=== PATIENT | female | born 1930 | race Caucasian/White ===

== ENCOUNTER → 2016-07-29 | Outpatient (CLI) | payer MEDICARE ==
[~2016-07-29] VITALS: Ht 157.5 cm; Wt 86.5 kg
[~2016-07-29] MED LIST: CHLORHEXIDINE GLUCONATE 2 % 1 PACK (2 CLOTHS) TOPICAL PRN; COUM7.5T PO; DULO20 PO; ENOX60P SQ; FURO1TAB62 PO; INSULIN HUMAN REGULAR 1,000 UNITS/10 ML VIAL SQ PRN; LACTATED RINGER'S 1000 ML IV PRN; LEVA500T20 PO; LEVO50TA53 PO; LISI-515 PO; LORA-373 PO; METO50TA PO; METOPROLOL TARTRATE 25 MG TAB PO PRN; NIFE30TA61 PO; NORC5TAB PO; OXYB5TAB10 PO; POTA1TAB4 PO; POVIDONE IODINE 5% (ANTISEPSIS KIT) 4 APPLICATIONS EACH NARE PRN; PROPOFOL 200 MG/20 ML AMP IV ONE; SODIUM CHLORID 0.9% 500 ML IV PRN; TIMO0.255 EACH EYE; TIMO0.5S30 EACH EYE; TIMO5SOL EACH EYE; WARF-60 PO
[2016-07-29 08:59] LABS: INTERNATIONAL NORMALIZED RATIO 1.1 RATIO; PROTHROMBIN TIME - PATIENT 12.4 SEC (9.8-11.6)
[2016-07-29 10:35] VITALS: TEMP 97.9
[2016-07-29 10:45] VITALS: BP 129/57; PULSE 67; RESP 18; O2SAT 95
--- NOTE | 2016-07-29 10:49 | GIPROC ---
[facility] [address] [facility]. [facility], [id number] EGD PROCEDURE REPORT EXAM DATE: 07/29/2016 PATIENT NAME: Neisha Baires MR #: [id number] BIRTHDATE: 1930 ATTENDING: Aida Garcia MD ORDER #: [id number] URGENT CARE PHYSICIAN: Forrest Philip and Bladimir Hernandez STATUS: outpatient INDICATIONS: The patient is a 86 yr old female here for an EGD due to dysphagia PROCEDURE PERFORMED: EGD w/ biopsy EGD w/ dilation of esophagus via guidewire MEDICATIONS: None and Per Anesthesia. TOPICAL ANESTHETIC: none CONSENT: The patient understands the risks and benefits of the procedure and understands that these risks include, but are not limited to: sedation, allergic reaction, infection, perforation and/or bleeding. Alternative means of evaluation and treatment include, among others: physical exam, x-rays, and/or surgical intervention. The patient elects to proceed with this endoscopic procedure. medical equipment was checked for proper function. Hand hygiene and appropriate measures for infection prevention was taken. After the risks, benefits and alternatives of the procedure were thoroughly explained, Informed consent was verified, confirmed and timeout was successfully executed by the treatment team. The patient was anesthetized with topical anesthesia and the Pentax EG-[id number] endoscope was introduced through the mouth and advanced to the second portion of the duodenum. Retroflexed views revealed a hiatal hernia The gastroscope was then slowly withdrawn and removed. Gastrtis antrum-biopsy esophagitis distal esophagsu-biopsy spasm distal esophagus -biopsy -s/p dilatation Savary dilator 16. ADVERSE EVENTS: There were no complications. IMPRESSIONS: 1. Gastrtis antrum-biopsy esophagitis distal esophagsu-biopsy spasm distal esophagus -biopsy -s/p dilatation Savary dilator 16 2. Retroflexed views revealed a hiatal hernia RECOMMENDATIONS: 1. Await biopsy results. Biopsy results will not be ready for 7-10 days. If you don't hear from us in two weeks, call our office for biopsy results. 2. Anti-reflux regimen 3. Continue PPI 4. Dilatations PRN 5. Avoid NSAIDS PATIENT CONDITION: stable DISPOSITION: Home REPEAT EXAM: Return as needed for EGD with dilatation Aida Gacria MD eSigned: Aida Garcia MD 07/29/2016 10:48 AM cc: Lanny Gar M.D. PATIENT NAME: Neisha Baires MR#: [id number]
--- NOTE | 2016-07-29 12:30 | EKG ---
Date Performed: 07/29/2016 Time Performed: 08:24:59 PTAGE: 86 years EKG: SINUS BRADYCARDIA INDETERMINATE AXIS RIGHT BUNDLE BRANCH BLOCK MODERATE T-WAVE ABNORMALITY, CONSIDER LATERAL ISCHEMIA ABNORMAL ECG Compared to prior tracing no significant change PREVIOUS TRACING : 07/25/2015 13.46 DOCTOR: Elder Dunham Interpretating Date/Time 07/29/2016 12:28:52
== END ==
LOC: HEND 07:53
PROVIDERS: ATTEND Internal Medicine Gastroenterology
DX: K29.50 Unspecified chronic gastritis without bleeding (principal); K44.9 Diaphragmatic hernia without obstruction or gangrene; R13.10 Dysphagia, unspecified; R94.31 Abnormal electrocardiogram [ECG] [EKG]
CPT/HCPCS: 00740; 43239; 43248; 85610; 88305; 88312; 93005; C1769

== ENCOUNTER 2016-09-23 15:48 | Inpatient (IN) | payer MEDICARE ==
[~2016-09-23] VITALS: Ht 157.5 cm; Wt 91.0 kg
[~2016-09-23 15:48] MED LIST changes: -CHLORHEXIDINE GLUCONATE 2 % 1 PACK (2 CLOTHS) TOPICAL PRN; -COUM7.5T PO; -ENOX60P SQ; -INSULIN HUMAN REGULAR 1,000 UNITS/10 ML VIAL SQ PRN; -LACTATED RINGER'S 1000 ML IV PRN; -LEVA500T20 PO; -METOPROLOL TARTRATE 25 MG TAB PO PRN; -NORC5TAB PO; -OXYB5TAB10 PO; -POVIDONE IODINE 5% (ANTISEPSIS KIT) 4 APPLICATIONS EACH NARE PRN; -PROPOFOL 200 MG/20 ML AMP IV ONE; -SODIUM CHLORID 0.9% 500 ML IV PRN; -TIMO0.5S30 EACH EYE; -TIMO5SOL EACH EYE
[2016-09-23 15:52] VITALS: BP 172/75; PULSE 82; RESP 18; TEMP 98.5; O2SAT 93
--- NOTE | 2016-09-23 16:13 | PD ---
Physical Exam Time Seen by Provider: 16:11 Narrative 86yo F c/o redness and swelling to L arm since yesterday. A knife fell from her cupboard last night and has an abrasion to her L hand w/ development of the arm redness and swelling. Denies fever, vomiting. Patient seen in triage. VS reviewed. Awaiting bed placement. Data Data Last Documented VS Vital Signs Date Time Temp Pulse Resp B/P Pulse Ox O2 Delivery O2 Flow Rate FiO2 09/23/16 15:52 98.5 82 18 172/75 93 Room Air MDM Supervised Visit with ELMA: Ginger Vasquez Sep 23, 2016 16:13
--- NOTE | 2016-09-23 17:43 | PD ---
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 Patient states she was in the kitchen and a clean knife fell on her hand and cut her between the first and second digit on the left, she states since then she noticed redness and swelling of the left upper extremity which has progressed rapidly distally to proximally. She denies any fever denies any nausea vomiting abdominal pain diarrhea. She is on Coumadin for a history of blood clots, she is due for her dose now. PFSH Past Medical History Hx Anticoagulant Therapy: Yes Arthritis: Yes (osteoarthritis right knee) Autoimmune Disease: Yes Anxiety: Yes Cancer: Yes (BREAST) Cardiovascular Problems: Yes Chemotherapy: Yes (2000) COPD: Yes Diabetes: No Diminished Hearing: No Endocrine: Yes Gastrointestinal Disorders: No Glaucoma: Yes Genitourinary: No Hypertension: Yes Immune Disorder: No Musculoskeletal: No Neurologic: No Psychiatric: No Reproductive: No Respiratory: Yes (PULMONARY EMBOLUS, PNEUMONIA, COPD) Radiation Therapy: Yes Thyroid Disease: Yes (HYPO) Past Surgical History Abdominal Surgery: Yes (COLON RESECTION WITH COLOSTOMY, APPENDECTOMY) AICD: No Appendectomy: Yes Cardiac Surgery: No Ear Surgery: No Endocrine Surgery: No Eye Surgery: Yes (CATARACTS) Genitourinary Surgery: No Gynecologic Surgery: Yes (2000 MASTECTOMY LEFT, LEFT SALPINGO OOPHORECTOMY) Joint Replacement: No Oral Surgery: Yes (TONSILLECTOMY) Pacemaker: No Thoracic Surgery: No Tonsillectomy: Yes Other Surgery: Yes (LEFT MASTECTOMY) Social History Alcohol Use: No Tobacco Use: No Substance Use: No Allergies-Medications (Allergen,Severity, Reaction): Coded Allergies: Adhesives (Verified Allergy, Severe, Hives, 09/22/16) Aspirin (Verified Allergy, Severe, 09/22/16) Nonsteroidal Anti-Inflammatory Agts (Verified Allergy, Severe, 09/22/16) Penicillin (Verified Allergy, Intermediate, Hives, 09/22/16) Sulfa (Verified Allergy, Intermediate, Rash, 09/22/16) Reported Meds & Prescriptions Reported Meds & Active Scripts Active Reported Bradford (Hydrocodone-Acetaminophen) 5-325 mg Tab 1 Tab PO Q6H PRN Coumadin (Warfarin) 7.5 Mg Tab 7.5 Mg PO TUTHSA Take 1 tablet daily on Tuesday, and Tuesday Timolol Opth Drops 0.5 % Soln 1 Drop EACH EYE DAILY Levoxyl (Levothyroxine Sodium) 50 Mcg Tab 50 Mcg PO DAILY Metoprolol Tartrate 50 Mg Tab 50 Mg PO BID Warfarin 6 Mg Tab 6 Mg PO SUMOWEFR Take 1 tablet (6mg) daily in Tuesday,Tuesday,Tuesday and Tuesday Nifedipine ER 24 HR (Nifedipine) 30 Mg Tab 30 Mg PO DAILY Lorazepam 0.5 Mg Tab 0.5 Mg PO Q8HR PRN Lisinopril 20 Mg Tab 20 Mg PO BID Lasix (Furosemide) 20 Mg Tab 20 Mg PO DAILY K-Tab (Potassium Chloride) 20 Meq Tab 20 Meq PO DAILY Cymbalta DR (Duloxetine HCl) 20 Mg Capdr 20 Mg PO DAILY Review of Systems Except as stated in HPI: all other systems reviewed are Neg Physical Exam Narrative GENERAL: Well-developed well-nourished, no obvious distress. SKIN: Significant erythema of the left upper extremity from the wrist proximally to the shoulder. It is completely circumferential, there is some induration, the extremity is hot to touch. HEAD: Atraumatic. Normocephalic. EYES: Pupils equal and round. No scleral icterus. No injection or drainage. ENT: No nasal bleeding or discharge. Mucous membranes pink and moist. NECK: Trachea midline. No JVD. CARDIOVASCULAR: Regular rate and rhythm. No murmur appreciated. RESPIRATORY: No accessory muscle use. Clear to auscultation. Breath sounds equal bilaterally. GASTROINTESTINAL: Abdomen soft, non-tender, nondistended. Hepatic and splenic margins not palpable. MUSCULOSKELETAL: No obvious deformities. No clubbing. No cyanosis. No edema. Full nontender range of motion of all joints of the left upper extremity and the remainder of the extremities as well. 2+ bilateral equal pulses in the present in all 4 extremity's. NEUROLOGICAL: Awake and alert. No obvious cranial nerve deficits. Motor grossly within normal limits. Normal speech. PSYCHIATRIC: Appropriate mood and affect; insight and judgment normal. Data Data Last Documented VS Vital Signs Date Time Temp Pulse Resp B/P Pulse Ox O2 Delivery O2 Flow Rate FiO2 6/15/17 19:19 87 18 155/66 95 Room Air 09/23/16 15:52 98.5 Orders Complete Blood Count With Diff (09/23/16 16:13) Basic Metabolic Panel (Bmp) (09/23/16 16:13) Lactic Acid (09/23/16 17:43) Warfarin (Coumadin) (09/23/16 18:15) Act Partial Throm Time (Ptt) (09/23/16 18:07) Prothrombin Time / Inr (Pt) (09/23/16 18:07) Blood Culture (09/23/16 19:02) Clindamycin Inj (Cleocin Inj) (09/23/16 19:15) Vancomycin Inj (Vancomycin Inj) (09/23/16 19:15) Acetamin-Hydrocod 325-5 Mg (Bradford 5-325 (09/23/16 19:45) Admit Order (Ed Use Only) (09/23/16 19:54) Labs Laboratory Tests Test 09/23/16 18:05 White Blood Count 13.9 TH/MM3 Red Blood Count 5.06 MIL/MM3 Hemoglobin 13.4 GM/DL Hematocrit 41.6 % Mean Corpuscular Volume 82.1 FL Mean Corpuscular Hemoglobin 26.5 PG Mean Corpuscular Hemoglobin 32.3 % Concent Red Cell Distribution Width 17.1 % Platelet Count 238 TH/MM3 Mean Platelet Volume 8.9 FL Neutrophils (%) (Auto) 88.5 % Lymphocytes (%) (Auto) 6.4 % Monocytes (%) (Auto) 3.9 % Eosinophils (%) (Auto) 0.8 % Basophils (%) (Auto) 0.4 % Neutrophils # (Auto) 12.3 TH/MM3 Lymphocytes # (Auto) 0.9 TH/MM3 Monocytes # (Auto) 0.5 TH/MM3 Eosinophils # (Auto) 0.1 TH/MM3 Basophils # (Auto) 0.1 TH/MM3 CBC Comment DIFF FINAL Differential Comment Prothrombin Time 26.1 SEC Prothromb Time International 2.3 RATIO Ratio Activated Partial 37.7 SEC Thromboplast Time Sodium Level 138 MEQ/L Potassium Level 4.1 MEQ/L Chloride Level 103 MEQ/L Carbon Dioxide Level 23.6 MEQ/L Anion Gap 11 MEQ/L Blood Urea Nitrogen 10 MG/DL Creatinine 0.60 MG/DL Estimat Glomerular Filtration 95 ML/MIN Rate Random Glucose 112 MG/DL Lactic Acid Level 1.5 mmol/L Calcium Level 9.4 MG/DL MDM Medical Decision Making Medical Screen Exam Complete: Yes Emergency Medical Condition: Yes Differential Diagnosis Cellulitis, sepsis, knife wound, chronic lymphangina. Narrative Course Patient roomed in the emergency department, patient appears to have a significant cellulitis probably partially due to the fact that she's had a chronic lymph edema of the left upper extremity. Patient will likely need admission but was discussed with Dr. Melo at the end of the shift follow-up basic labs and disposition the patient properly. Eros Chappell MD Sep 23, 2016 17:43
[2016-09-23] MEDS ORDERED: WARFARIN SOD 7.5 MG TAB PO ONE (18:15)
[2016-09-23 18:21] VITALS: BP 161/70; PULSE 82; RESP 16; O2SAT 93
[2016-09-23 18:37] LABS: AUTOMATED NEUTROPHIL # 12.3 TH/MM3 (1.8-7.7); BASOPHIL # 0.1 TH/MM3 (0-0.2); BASOPHIL % 0.4 % (0.0-2.0); EOSINOPHIL # 0.1 TH/MM3 (0-0.4); EOSINOPHIL % 0.8 % (0.0-4.0); HEMATOCRIT 41.6 % (35.0-46.0); HEMO FLAGS DIFF FINAL; LYMPH % 6.4 % (9.0-44.0); LYMPHOCYTE # 0.9 TH/MM3 (1.0-4.8); MEAN CELL VOLUME 82.1 FL (80.0-100.0); MEAN CORPUSCULAR HEMOGLOBIN 26.5 PG (27.0-34.0); MEAN CORPUSCULAR HGB CONC 32.3 % (32.0-36.0); MONO % 3.9 % (0.0-8.0); NEUT % 88.5 % (16.0-70.0); PLATELET COUNT 238 TH/MM3 (150-450); RED BLOOD COUNT 5.06 MIL/MM3 (4.00-5.30); RED CELL DISTRIBUTION WIDTH 17.1 % (11.6-17.2); WHITE BLOOD COUNT 13.9 TH/MM3 (4.0-11.0)
[2016-09-23] MEDS ORDERED: TIMO0.5S30 EACH EYE (18:43)
[2016-09-23] MEDS ORDERED: NORC5TAB PO (18:43)
[2016-09-23] MEDS ORDERED: COUM7.5T PO (18:43)
[2016-09-23 18:59] LABS: APTT (PATIENT) 37.7 SEC (24.3-30.1); INTERNATIONAL NORMALIZED RATIO 2.3 RATIO; PROTHROMBIN TIME - PATIENT 26.1 SEC (9.8-11.6)
[2016-09-23 19:03] LABS: BICARBONATE 23.6 MEQ/L (21.0-32.0); POTASSIUM 4.1 MEQ/L (3.5-5.1)
[2016-09-23] MEDS ORDERED: VANCOMYCIN INJ 1,000 MG in SODIUM CHLOR 0.9% 250 ML INJ 250 ML IV ONE (19:15)
[2016-09-23] MEDS ORDERED: CLINDAMYCIN INJ 600 MG in SODIUM CHLORIDE 0.9% INJ 100 ML IV ONE (19:15)
[2016-09-23 19:19] VITALS: BP 155/66; PULSE 87; RESP 18; O2SAT 95
--- NOTE | 2016-09-23 19:35 | PD ---
Data Data Last Documented VS Vital Signs Date Time Temp Pulse Resp B/P Pulse Ox O2 Delivery O2 Flow Rate FiO2 09/23/16 19:19 87 18 155/66 95 Room Air 09/23/16 15:52 98.5 Orders Complete Blood Count With Diff (09/23/16 16:13) Basic Metabolic Panel (Bmp) (09/23/16 16:13) Lactic Acid (09/23/16 17:43) Warfarin (Coumadin) (09/23/16 18:15) Act Partial Throm Time (Ptt) (09/23/16 18:07) Prothrombin Time / Inr (Pt) (09/23/16 18:07) Blood Culture (09/23/16 19:02) Clindamycin Inj (Cleocin Inj) (09/23/16 19:15) Vancomycin Inj (Vancomycin Inj) (09/23/16 19:15) Acetamin-Hydrocod 325-5 Mg (Margaret 5-325 (09/23/16 19:45) Admit Order (Ed Use Only) (09/23/16 19:54) Labs Laboratory Tests Test 09/23/16 18:05 White Blood Count 13.9 TH/MM3 Red Blood Count 5.06 MIL/MM3 Hemoglobin 13.4 GM/DL Hematocrit 41.6 % Mean Corpuscular Volume 82.1 FL Mean Corpuscular Hemoglobin 26.5 PG Mean Corpuscular Hemoglobin 32.3 % Concent Red Cell Distribution Width 17.1 % Platelet Count 238 TH/MM3 Mean Platelet Volume 8.9 FL Neutrophils (%) (Auto) 88.5 % Lymphocytes (%) (Auto) 6.4 % Monocytes (%) (Auto) 3.9 % Eosinophils (%) (Auto) 0.8 % Basophils (%) (Auto) 0.4 % Neutrophils # (Auto) 12.3 TH/MM3 Lymphocytes # (Auto) 0.9 TH/MM3 Monocytes # (Auto) 0.5 TH/MM3 Eosinophils # (Auto) 0.1 TH/MM3 Basophils # (Auto) 0.1 TH/MM3 CBC Comment DIFF FINAL Differential Comment Prothrombin Time 26.1 SEC Prothromb Time International 2.3 RATIO Ratio Activated Partial 37.7 SEC Thromboplast Time Sodium Level 138 MEQ/L Potassium Level 4.1 MEQ/L Chloride Level 103 MEQ/L Carbon Dioxide Level 23.6 MEQ/L Anion Gap 11 MEQ/L Blood Urea Nitrogen 10 MG/DL Creatinine 0.60 MG/DL Estimat Glomerular Filtration 95 ML/MIN Rate Random Glucose 112 MG/DL Lactic Acid Level 1.5 mmol/L Calcium Level 9.4 MG/DL [facility] Medical Record Reviewed: Yes Supervised Visit with ELMA: No Narrative Course CBC & BMP Diagram 09/23/16 18:05 Neutrophils 88.5% LA 1.5 INR 2.[address] Chappell's note. Vanco started. Case d/w Dr Hernández. Diagnosis Primary Impression: Cellulitis of arm, left Admitting Information Admitting Physician Requests: Observation Ervin Melo MD Sep 23, 2016 19:35
[2016-09-23] MEDS ORDERED: ACETAMINOPHEN/HYDROcodone 325 MG/5 MG TAB PO ONE (19:45)
[2016-09-23] MEDS ORDERED: SODIUM CHLORIDE 0.9% FLUSH 10 ML FLUSH IV FLUSH PRN (21:15)
--- NOTE | 2016-09-23 21:31 | HHI.HP ---
HPI Service [facility] Hospitalists Primary Care Physician Lanny Gar MD Admission Diagnosis LUE Cellulitis Chief Complaint: Left hand laceration, LUE swelling and redness Travel History International Travel<30 Days: No Contact w/Intl Traveler <30 Da: No Traveled to Known Affected Are: No History of Present Illness Patient is an 86-year-old female with significant medical history and noted history of chronic lymphedema to the left upper extremity presents emergency Department with redness and swelling to the left upper extremity since yesterday. Patient states she was in the kitchen and a clean knife fell on her hand and cut her between the first and second digit on the left, she states since then she noticed redness and swelling of the left upper extremity which has progressed rapidly distally to proximally. She denies any fever denies any nausea vomiting abdominal pain diarrhea. She is on Coumadin for a history of recurrent blood clots, she is due for her dose now. On further questioning it is noted that patient generally wears a compression- type device on her left upper extremity. She states she usually keeps it in place for a couple of days at a time but had recently left in place for approximately 5-6 days in a row. She notes that when she removed the compression device she noted the redness. She thought it may be associated with the laceration although the redness is actually not around the laceration on her hand but more so in the restricted distribution to wear her compression device is generally in place on the left upper extremity. Review of Systems Constitutional: DENIES: Diaphoretic episodes, Fatigue, Fever, Weight gain, Weight loss, Chills, Dizziness, Change in appetite, Night Sweats Ears, nose, mouth, throat: DENIES: Tinnitus, Hearing loss, Vertigo, Nasal discharge, Oral lesions, Throat pain, Hoarseness, Ear Pain, Running Nose, Epistaxis, Sinus Pain, Toothache, Odynophagia Respiratory: DENIES: Apneas, Cough, Snoring, Wheezing, Hemoptysis, Sputum production, Shortness of breath Cardiovascular: COMPLAINS OF: Dyspnea on Exertion, DENIES: Chest pain, Palpitations, Syncope, PND, Lower Extremity Edema, Orthopnea, Claudication Gastrointestinal: COMPLAINS OF: Abdominal pain Musculoskeletal: COMPLAINS OF: Joint pain Hematologic/lymphatic: COMPLAINS OF: Bruising Immunologic/allergic: DENIES: Eczema, Urticaria Neurologic: COMPLAINS OF: Abnormal gait Psychiatric: COMPLAINS OF: Anxiety Other Laceration to left hand, redness left upper extremity Chronic abdominal wound Past Family Social History Past Medical History Atherosclerosis of the aorta Chronic ileostomy Recurrent DVT Morbid obesity Chronic lymphedema left upper extremity Hypertension Hypothyroidism Glaucoma History of pulmonary embolism Past Surgical History Appendectomy Cataract surgery Modified radical mastectomy on the left History of radiation therapy History of lipectomy Diverticulitis with perforation s/p sigmoid resection, left salpingo- oophorectomy with cystectomy and end colostomy placement on 07/30/15 History of breast cancer (s/p L mastectomy) Sigmoid resection, left salpingo-oophorectomy with cystectomy and end colostomy placement on 07/30/15 L mastectomy (also s/p radiation and chemotherapy) Tonsillectomy Reported Medications Timoptic Opth Drops (Timolol Opth Drops) 0.25 % Soln 1 Drop EACH EYE BID Levoxyl (Levothyroxine Sodium) 50 Mcg Tab 50 Mcg PO DAILY Metoprolol Tartrate 50 Mg Tab 50 Mg PO BID Warfarin 6 Mg Tab 6 Mg PO DIRECTED and and Saturdays 7.5mg, then all other days 7mg Nifedipine ER 24 HR (Nifedipine) 30 Mg Tab 30 Mg PO DAILY Lorazepam 0.5 Mg Tab 0.5 Mg PO DIRECTED PRN Lisinopril 20 Mg Tab 20 Mg PO BID Lasix (Furosemide) 20 Mg Tab 20 Mg PO DAILY K-Tab (Potassium Chloride) 20 Meq Tab 20 Meq PO DAILY Cymbalta DR (Duloxetine HCl) 20 Mg Capdr 20 Mg PO DAILY Allergies: Coded Allergies: Adhesives (Verified Allergy, Severe, Hives, 09/22/16) Aspirin (Verified Allergy, Severe, 09/22/16) Nonsteroidal Anti-Inflammatory Agts (Verified Allergy, Severe, 09/22/16) Penicillin (Verified Allergy, Intermediate, Hives, 09/22/16) Sulfa (Verified Allergy, Intermediate, Rash, 09/22/16) Family History nc Social History No tobacco since 1983 prior to that smoked less than pack per day for approximately 20 years Denies alcohol or illicit drug use Lives with her they've been for 44 years Previously worked for a [employer] in [facility]. Has been in this area for 20 years. Physical Exam Vital Signs Vital Signs Date Time Temp Pulse Resp B/P Pulse Ox O2 Delivery O2 Flow Rate FiO2 6/15/17 19:19 87 18 155/66 95 Room Air 09/23/16 18:21 82 16 161/70 93 Room Air 09/23/16 15:52 98.5 82 18 172/75 93 Room Air Physical Exam GENERAL: This is a well-nourished, well-developed obese, well-developed patient , in no apparent distress. Pleasant and cooperative. SKIN: Erythematous rash anterior abdominal wall with dressing in place. Colostomy bag left lower quadrant. Dorsum of left hand with approximately 1 cm laceration with no discharge and minimal surrounding erythema. Left upper extremity noted from approximately the mid forearm to the upper arm with erythema and some induration and chronic lymphedematous changes. The areas of erythema are somewhat warm to palpation and slightly painful particularly in the indurated areas in the left medial proximal arm. HEAD: Atraumatic. Normocephalic. No temporal or scalp tenderness. EYES: Pupils equal round and reactive. Extraocular motions intact. No scleral icterus. No injection or drainage. ENT: Nose without bleeding, purulent drainage or septal hematoma. Airway patent. NECK: Trachea midline. No JVD or lymphadenopathy. Supple, nontender, no meningeal signs. CARDIOVASCULAR: Regular rate and rhythm without murmurs, gallops, or rubs. RESPIRATORY: Clear to auscultation. Breath sounds equal bilaterally. No wheezes , rales, or rhonchi. GASTROINTESTINAL: Abdomen soft, mild global tenderness to palpation, mild distention. No hepato-splenomegaly, or palpable masses. No guarding. Bowel sounds present. Colostomy bag noted. MUSCULOSKELETAL: Extremities without clubbing, cyanosis. Edema in left upper extremity and 1+ edema in distal lower extremities. No joint tenderness, effusion, or edema noted. No calf tenderness. NEUROLOGICAL: Awake and alert. Cranial nerves II through XII intact. Motor and sensory grossly within normal limits. Five out of 5 muscle strength in all muscle groups. Normal speech. Laboratory Laboratory Tests Test 09/23/16 18:05 White Blood Count 13.9 Red Blood Count 5.06 Hemoglobin 13.4 Hematocrit 41.6 Mean Corpuscular Volume 82.1 Mean Corpuscular Hemoglobin 26.5 Mean Corpuscular Hemoglobin 32.3 Concent Red Cell Distribution Width 17.1 Platelet Count 238 Mean Platelet Volume 8.9 Neutrophils (%) (Auto) 88.5 Lymphocytes (%) (Auto) 6.4 Monocytes (%) (Auto) 3.9 Eosinophils (%) (Auto) 0.8 Basophils (%) (Auto) 0.4 Neutrophils # (Auto) 12.3 Lymphocytes # (Auto) 0.9 Monocytes # (Auto) 0.5 Eosinophils # (Auto) 0.1 Basophils # (Auto) 0.1 CBC Comment DIFF FINAL Differential Comment Prothrombin Time 26.1 Prothromb Time International 2.3 Ratio Activated Partial 37.7 Thromboplast Time Sodium Level 138 Potassium Level 4.1 Chloride Level 103 Carbon Dioxide Level 23.6 Anion Gap 11 Blood Urea Nitrogen 10 Creatinine 0.60 Estimat Glomerular Filtration 95 Rate Random Glucose 112 Lactic Acid Level 1.5 Calcium Level 9.4 Date/Time Procedure Status Source Growth 09/23/16 18:05 Aerobic Blood Culture Received Blood Peripheral Pending 09/23/16 18:05 Anaerobic Blood Culture Received Blood Peripheral Pending Result Diagram: 09/23/16 18009/23/16 180 Assessment and Plan Problem List: (1) Hand laceration Status: Acute Plan: Does not appear significantly infected and only minimal surrounding cellulitic changes. We'll provide oral doxycycline. I believe most of the erythema in the left upper extremity is associated with possible contact dermatitis from prolonged exposure of her compression device Elevate left upper extremity and use ice to the area. Follow clinically. (2) Lymphedema Status: Chronic Plan: As noted above. (3) HTN (hypertension) Status: Chronic Plan: Continue medication. (4) H/O malignant neoplasm of breast Status: Chronic Plan: Outpatient follow-up. (5) Hypothyroid Status: Chronic Plan: TSH 3.79 in August of this year. Continue medication. (6) History of bowel resection Status: Chronic Plan: Continue ostomy care. (7) History of recurrent deep vein thrombosis (DVT) Status: Chronic Plan: INR therapeutic. Continue current warfarin dose. We'll need to monitor more closely if she remains on antibiotic. Discussed Condition With Patient, her and ER physician Harjit Hernández MD PhD Sep 23, 2016 21:31
[2016-09-23 21:51] VITALS: BP 133/63; PULSE 79; RESP 18; TEMP 98.1; O2SAT 100
[2016-09-23 21:55] VITALS: BP 136/65; PULSE 89; RESP 18; O2SAT 93
[2016-09-23] MEDS: METOPROLOL TARTRATE 50 MG TAB PO SCH (21:57)
[2016-09-23] MEDS: LISINOPRIL 20 MG TAB PO SCH (21:58)
[2016-09-23 22:47] VITALS: BP 122/57; PULSE 71; RESP 18; TEMP 98.1; O2SAT 93
[2016-09-23] MEDS: LORazepam 0.5 MG TAB PO PRN (23:29)
[2016-09-24] MEDS: DULoxetine HCl DR 20 MG CAP PO SCH ×2 (00:04→21:28)
[2016-09-24 04:11] VITALS: BP 121/58; PULSE 65; RESP 18; TEMP 98.5; O2SAT 91
[2016-09-24] MEDS: LEVOTHYROXINE SODIUM 50 MCG TAB PO SCH (06:24)
[2016-09-24 07:39] LABS: AUTOMATED NEUTROPHIL # 8.9 TH/MM3 (1.8-7.7); BASOPHIL % 0.4 % (0.0-2.0); EOSINOPHIL # 0.2 TH/MM3 (0-0.4); EOSINOPHIL % 1.8 % (0.0-4.0); HEMATOCRIT 37.7 % (35.0-46.0); HEMO FLAGS DIFF FINAL; LYMPH % 15.1 % (9.0-44.0); LYMPHOCYTE # 1.7 TH/MM3 (1.0-4.8); MEAN CELL VOLUME 82.4 FL (80.0-100.0); MEAN CORPUSCULAR HEMOGLOBIN 26.7 PG (27.0-34.0); MEAN CORPUSCULAR HGB CONC 32.4 % (32.0-36.0); MONO % 5.5 % (0.0-8.0); NEUT % 77.2 % (16.0-70.0); PLATELET COUNT 222 TH/MM3 (150-450); RED BLOOD COUNT 4.57 MIL/MM3 (4.00-5.30); RED CELL DISTRIBUTION WIDTH 16.8 % (11.6-17.2); WHITE BLOOD COUNT 11.5 TH/MM3 (4.0-11.0)
[2016-09-24 07:44] LABS: INTERNATIONAL NORMALIZED RATIO 2.6 RATIO; PROTHROMBIN TIME - PATIENT 30.3 SEC (9.8-11.6)
[2016-09-24 08:06] VITALS: BP 154/64; PULSE 68; RESP 18; TEMP 97.8; O2SAT 95
[2016-09-24] MEDS ORDERED: Vancomycin Consult Pharmacy 1 EA OTHER SCH (08:30)
--- NOTE | 2016-09-24 08:54 | HHI.PR ---
Subjective Remarks Pt thinks that the erythema is slightly less red and angry looking but its noted to have spread onto the left chest Pt is afebrile. Objective Vitals Vital Signs Date Time Temp Pulse Resp B/P Pulse Ox O2 Delivery O2 Flow Rate FiO2 09/24/16 08:06 97.8 68 18 154/64 95 09/24/16 04:11 98.5 65 18 121/58 91 09/23/16 22:47 98.1 71 18 122/57 93 09/23/16 21:55 89 18 136/65 93 Room Air 09/23/16 21:51 98.1 79 18 133/63 100 Room Air 09/23/16 19:19 87 18 155/66 95 Room Air 09/23/16 18:21 82 16 161/70 93 Room Air 09/23/16 15:52 98.5 82 18 172/75 93 Room Air 09/23/16 09/23/16 09/24/16 15:00 23:00 07:00 Intake Total 120 ml Balance 120 ml Intake Oral 120 ml Result Diagram: 09/24/16 0612 09/23/16 1805 Other Results Laboratory Tests Test 09/23/16 09/24/16 18:05 06:12 White Blood Count 13.9 TH/MM3 11.5 TH/MM3 Red Blood Count 5.06 MIL/MM3 4.57 MIL/MM3 Hemoglobin 13.4 GM/DL 12.2 GM/DL Hematocrit 41.6 % 37.7 % Mean Corpuscular Volume 82.1 FL 82.4 FL Mean Corpuscular Hemoglobin 26.5 PG 26.7 PG Mean Corpuscular Hemoglobin 32.3 % 32.4 % Concent Red Cell Distribution Width 17.1 % 16.8 % Platelet Count 238 TH/MM3 222 TH/MM3 Mean Platelet Volume 8.9 FL 8.9 FL Neutrophils (%) (Auto) 88.5 % 77.2 % Lymphocytes (%) (Auto) 6.4 % 15.1 % Monocytes (%) (Auto) 3.9 % 5.5 % Eosinophils (%) (Auto) 0.8 % 1.8 % Basophils (%) (Auto) 0.4 % 0.4 % Neutrophils # (Auto) 12.3 TH/MM3 8.9 TH/MM3 Lymphocytes # (Auto) 0.9 TH/MM3 1.7 TH/MM3 Monocytes # (Auto) 0.5 TH/MM3 0.6 TH/MM3 Eosinophils # (Auto) 0.1 TH/MM3 0.2 TH/MM3 Basophils # (Auto) 0.1 TH/MM3 0.0 TH/MM3 CBC Comment DIFF FINAL DIFF FINAL Differential Comment Prothrombin Time 26.1 SEC 30.3 SEC Prothromb Time International 2.3 RATIO 2.6 RATIO Ratio Activated Partial 37.7 SEC Thromboplast Time Sodium Level 138 MEQ/L Potassium Level 4.1 MEQ/L Chloride Level 103 MEQ/L Carbon Dioxide Level 23.6 MEQ/L Anion Gap 11 MEQ/L Blood Urea Nitrogen 10 MG/DL Creatinine 0.60 MG/DL Estimat Glomerular Filtration 95 ML/MIN Rate Random Glucose 112 MG/DL Lactic Acid Level 1.5 mmol/L Calcium Level 9.4 MG/DL Objective Remarks General: NAD, AAOx3 Chest: CTA Cardiac: Regular Abd: +BS, soft ND/NT, ostomy on left abdomen Ext: LUE with erythema from the wrist up to the axilla with streaking into the left chest Right axilla with some pustules noted. A/P Problem List: (1) Cellulitis of arm, left Status: Acute Plan: - Pt is an 86 y/o female with hx of left breast cancer s/p left mastectomy/chemo /xrt and chronic lymphedema left upper extremity - Pt admitted with erythema of the LUE located mainly in the area where her compression stocking is typically worn. - In the ED pt was given IV Clindamycin and Vancomycin. - Initially thought to possibly be a contact dermatitis reaction from her compression stocking but today pt noted to have some red streaking into her left chest area. - Stop Doxy - Start Vancomycin IV with pharmacy dosing - Blood cultures drawn in the ED are pending. - Monitor labs and vital signs - Supportive care - Pt is therapeutic on her Coumadin. (2) Hand laceration Status: Acute Plan: - Pt accidentally cut her left hand the day prior to admission with a clean kitchen knife. - This wound does not appear significantly infected and only minimal surrounding cellulitic changes. - Follow clinically. (3) Lymphedema Status: Chronic Plan: - As noted above. (4) HTN (hypertension) Status: Chronic Plan: - Continue medication. (5) H/O malignant neoplasm of breast Status: Chronic Plan: - Outpatient follow-up. (6) Hypothyroid Status: Chronic Plan: - TSH 3.79 in August of this year. Continue medication. (7) History of bowel resection Status: Chronic Plan: - Continue ostomy care. (8) History of recurrent deep vein thrombosis (DVT) Status: Chronic Plan: - INR therapeutic. - Continue current warfarin dose. - We'll need to monitor more closely while on antibiotic. Assessment and Plan Patient examined. Assessment and plan formulated with Zoey Rodgers PA-C. I agree with the above. Left arm erythema/tenderness concerning for cellulitis in lymphedema arm. But the redness was also in the distribution of a new lympedema sleeve and so contact dermatitis has been considered. keep in [place]. iv abx and f/u cx for now. Zoey Rodgers Sep 24, 2016 08:54 Rhett Beckett MD Sep 24, 2016 20:10
[2016-09-24] MEDS ORDERED: DOXYCYCLINE HYCLATE 100 MG CAP PO SCH (09:00)
[2016-09-24] MEDS ORDERED: DULoxetine HCl DR 20 MG CAP PO SCH (09:00)
[2016-09-24] MEDS: POTASSIUM CHLORIDE 20 MEQ CONTROLLED RELEASE TAB PO SCH (09:28)
[2016-09-24] MEDS: METOPROLOL TARTRATE 50 MG TAB PO SCH ×2 (09:28→21:29)
[2016-09-24] MEDS: FUROSEMIDE 20 MG TAB PO SCH (09:28)
[2016-09-24] MEDS: NIFEdipine 30 MG SUSTAINED RELEASE TAB PO SCH (09:28)
[2016-09-24] MEDS: LISINOPRIL 20 MG TAB PO SCH ×2 (09:28→21:28)
[2016-09-24] MEDS: SODIUM CHLORIDE 0.9% FLUSH 10 ML FLUSH IV FLUSH SCH ×2 (09:29→21:28)
[2016-09-24] MEDS: TIMOLOL MALEATE 0.5% OPHT SOLN 5 ML BTL EACH EYE SCH (09:33)
[2016-09-24] MEDS ORDERED: VANCOMYCIN INJ 1,000 MG in SODIUM CHLOR 0.9% 250 ML INJ 250 ML IV SCH (10:00)
[2016-09-24] MEDS: ACETAMINOPHEN/HYDROcodone 325 MG/5 MG TAB PO PRN ×3 (10:21→22:30)
[2016-09-24 11:11] VITALS: BP 124/56; PULSE 64; RESP 16; TEMP 97.8; O2SAT 95
[2016-09-24] MEDS: VANCOMYCIN INJ 1,250 MG in SODIUM CHLOR 0.9% 250 ML INJ 250 ML IV SCH (14:16)
[2016-09-24] MEDS: WARFARIN SOD 5 MG TAB PO SCH (16:20)
[2016-09-24] MEDS: WARFARIN SOD 2 MG TAB PO SCH (16:20)
[2016-09-24 18:48] VITALS: BP 177/78; PULSE 77; RESP 18; TEMP 96.7; O2SAT 93
[2016-09-24 20:00] VITALS: BP 148/69; PULSE 69; RESP 20; TEMP 97.1; O2SAT 97
[2016-09-24] MEDS: LORazepam 0.5 MG TAB PO PRN (21:55)
[2016-09-25 01:17] VITALS: BP 141/63; PULSE 63; RESP 20; TEMP 97.1; O2SAT 100
[2016-09-25 04:23] VITALS: BP 127/58; PULSE 65; RESP 19; TEMP 98.2; O2SAT 100
[2016-09-25] MEDS: LEVOTHYROXINE SODIUM 50 MCG TAB PO SCH (05:58)
[2016-09-25 08:00] VITALS: BP 162/67; PULSE 61; RESP 19; TEMP 96.7; O2SAT 89
[2016-09-25] MEDS: NIFEdipine 30 MG SUSTAINED RELEASE TAB PO SCH (08:38)
[2016-09-25] MEDS: FUROSEMIDE 20 MG TAB PO SCH (08:38)
[2016-09-25] MEDS: POTASSIUM CHLORIDE 20 MEQ CONTROLLED RELEASE TAB PO SCH (08:39)
[2016-09-25] MEDS: LISINOPRIL 20 MG TAB PO SCH ×2 (08:39→21:17)
[2016-09-25] MEDS: SODIUM CHLORIDE 0.9% FLUSH 10 ML FLUSH IV FLUSH SCH ×2 (08:39→21:17)
[2016-09-25] MEDS: METOPROLOL TARTRATE 50 MG TAB PO SCH ×2 (08:39→21:17)
[2016-09-25] MEDS: ACETAMINOPHEN/HYDROcodone 325 MG/5 MG TAB PO PRN ×2 (08:39→22:04)
[2016-09-25 09:37] LABS: AUTOMATED NEUTROPHIL # 6.4 TH/MM3 (1.8-7.7); BASOPHIL # 0.1 TH/MM3 (0-0.2); BASOPHIL % 0.8 % (0.0-2.0); EOSINOPHIL # 0.4 TH/MM3 (0-0.4); EOSINOPHIL % 4.6 % (0.0-4.0); HEMATOCRIT 37.8 % (35.0-46.0); HEMO FLAGS DIFF FINAL; LYMPH % 15.8 % (9.0-44.0); LYMPHOCYTE # 1.4 TH/MM3 (1.0-4.8); MEAN CELL VOLUME 82.2 FL (80.0-100.0); MEAN CORPUSCULAR HGB CONC 34.1 % (32.0-36.0); MONO % 6.5 % (0.0-8.0); NEUT % 72.3 % (16.0-70.0); PLATELET COUNT 256 TH/MM3 (150-450); RED CELL DISTRIBUTION WIDTH 17.4 % (11.6-17.2); WHITE BLOOD COUNT 8.9 TH/MM3 (4.0-11.0)
[2016-09-25] MEDS: TIMOLOL MALEATE 0.5% OPHT SOLN 5 ML BTL EACH EYE SCH (09:42)
[2016-09-25 09:45] LABS: INTERNATIONAL NORMALIZED RATIO 2.7 RATIO; PROTHROMBIN TIME - PATIENT 31.5 SEC (9.8-11.6)
[2016-09-25 10:32] LABS: BICARBONATE 23.2 MEQ/L (21.0-32.0); MAGNESIUM 2.2 MG/DL (1.5-2.5)
[2016-09-25 10:35] LABS: POTASSIUM 4.9 MEQ/L (3.5-5.1)
[2016-09-25 12:00] VITALS: BP 121/66; PULSE 59; RESP 16; TEMP 96.6; O2SAT 94
[2016-09-25] MEDS: VANCOMYCIN INJ 1,250 MG in SODIUM CHLOR 0.9% 250 ML INJ 250 ML IV SCH (14:37)
--- NOTE | 2016-09-25 15:10 | HHI.PR ---
Subjective Remarks left arm pain and redness improving Objective Vitals heaert reg lung cta abd s/nt ext left arm redness/swelling much improved stll with some scattered area of redness and induration under the elbow mostly lymphedema no streaked redness over ant chest. Vital Signs Date Time Temp Pulse Resp B/P Pulse Ox O2 Delivery O2 Flow Rate FiO2 09/25/16 12:00 96.6 59 16 121/66 94 09/25/16 08:00 96.7 61 19 162/67 89 09/25/16 04:23 98.2 65 19 127/58 100 09/25/16 01:17 97.1 63 20 141/63 100 09/24/16 20:00 97.1 69 20 148/69 97 09/24/16 20:00 97.1 69 20 148/69 97 09/24/16 18:48 96.7 77 18 177/78 93 09/24/16 09/24/16 09/25/16 15:00 23:00 07:00 Intake Total 250 ml Balance 250 ml IV Total 250 ml Result Diagram: 09/25/16 0838 09/25/16 0838 A/P Problem List: (1) Cellulitis of arm, left Status: Acute Plan: - Pt is an 86 y/o female with hx of left breast cancer s/p left mastectomy/chemo /xrt and chronic lymphedema left upper extremity - Pt admitted with erythema of the LUE located mainly in the area where her compression stocking is typically worn. - In the ED pt was given IV Clindamycin and Vancomycin. - Initially thought to possibly be a contact dermatitis reaction from her compression stocking but then pt noted to have some red streaking into her left chest area. today the arm is less swollen/red but still with some induration and edema. much less painful cont abx and follow exam (2) Hand laceration Status: Acute Plan: - Pt accidentally cut her left hand the day prior to admission with a clean kitchen knife. - This wound does not appear significantly infected and only minimal surrounding cellulitic changes. - Follow clinically. (3) Lymphedema Status: Chronic Plan: - As noted above. (4) HTN (hypertension) Status: Chronic Plan: - Continue medication. (5) H/O malignant neoplasm of breast Status: Chronic Plan: - Outpatient follow-up. (6) Hypothyroid Status: Chronic Plan: - TSH 3.79 in August of this year. Continue medication. (7) History of bowel resection Status: Chronic Plan: - Continue ostomy care. (8) History of recurrent deep vein thrombosis (DVT) Status: Chronic Plan: - INR therapeutic. - Continue current warfarin dose. - We'll need to monitor more closely while on antibiotic. Rhett Beckett MD Sep 25, 2016 15:10 Assessment and Plan Patient examined. Assessment and plan formulated with Zoey Rodgers PA-C. I agree with the above. Left arm erythema/tenderness concerning for cellulitis in lymphedema arm. But the redness was also in the distribution of a new lympedema sleeve and so contact dermatitis has been considered. keep in [place]. iv abx and f/u cx for now. Rhett Beckett MD Sep 25, 2016 15:10
[2016-09-25 16:00] VITALS: BP 148/75; PULSE 74; RESP 18; TEMP 97.8; O2SAT 94
[2016-09-25] MEDS ORDERED: WARFARIN SOD 7.5 MG TAB PO SCH (16:00)
[2016-09-25] MEDS: DULoxetine HCl DR 20 MG CAP PO SCH (21:17)
[2016-09-25 21:51] VITALS: BP 156/72; PULSE 71; RESP 20; TEMP 98; O2SAT 96
[2016-09-25] MEDS: LORazepam 0.5 MG TAB PO PRN (22:47)
[2016-09-26] VITALS (7 sets, daily range): BP systolic 134–168; BP diastolic 62–72; PULSE 60–84; RESP 17–20; TEMP 96–99.2; O2SAT 93–98
[2016-09-26] MEDS: LEVOTHYROXINE SODIUM 50 MCG TAB PO SCH (05:30)
[2016-09-26] MEDS: LISINOPRIL 20 MG TAB PO SCH ×2 (08:50→21:44)
[2016-09-26] MEDS: FUROSEMIDE 20 MG TAB PO SCH (08:50)
[2016-09-26] MEDS: METOPROLOL TARTRATE 50 MG TAB PO SCH ×2 (08:50→21:44)
[2016-09-26] MEDS: NIFEdipine 30 MG SUSTAINED RELEASE TAB PO SCH (08:50)
[2016-09-26] MEDS: POTASSIUM CHLORIDE 20 MEQ CONTROLLED RELEASE TAB PO SCH (08:50)
[2016-09-26] MEDS: TIMOLOL MALEATE 0.5% OPHT SOLN 5 ML BTL EACH EYE SCH (08:51)
[2016-09-26] MEDS: ACETAMINOPHEN/HYDROcodone 325 MG/5 MG TAB PO PRN ×2 (08:51→21:45)
[2016-09-26] MEDS: SODIUM CHLORIDE 0.9% FLUSH 10 ML FLUSH IV FLUSH SCH ×2 (08:51→21:00)
[2016-09-26 09:34] LABS: INTERNATIONAL NORMALIZED RATIO 2.9 RATIO; PROTHROMBIN TIME - PATIENT 34.1 SEC (9.8-11.6)
--- NOTE | 2016-09-26 13:21 | HHI.PR ---
Subjective Remarks pt says her left arm feels better. pain level much less but still swollen. Objective Vitals heart reg lung cta abd s/nt/ostomy ext lue lymphedema/ecchymosis left medial upper arm. redness and tenderness that was from wrist to shoulder essentially resolved Vital Signs Date Time Temp Pulse Resp B/P Pulse Ox O2 Delivery O2 Flow Rate FiO2 09/26/16 12:00 96.5 60 18 134/62 94 09/26/16 08:00 96.0 77 19 168/72 94 09/26/16 03:06 98.1 65 18 150/70 97 09/26/16 01:36 97.2 61 18 140/65 96 09/25/16 21:51 98.0 71 20 156/72 96 09/25/16 16:00 97.8 74 18 148/75 94 09/25/16 09/25/16 09/26/16 15:00 23:00 07:00 Intake Total 480 ml Balance 480 ml Intake Oral 480 ml # Voids 2 5 # Bowel Movements 1 Result Diagram: 09/25/16 0838 09/26/16 0812 A/P Problem List: (1) Cellulitis of arm, left Status: Acute Plan: - Pt is an 86 y/o female with hx of left breast cancer s/p left mastectomy/chemo /xrt and chronic lymphedema left upper extremity - Pt admitted with erythema of the LUE located mainly in the area where her compression stocking is typically worn. - In the ED pt was given IV Clindamycin and Vancomycin. - Initially thought to possibly be a contact dermatitis reaction from her compression stocking as the area of redness from wrist to shoulder perfectly matched the area covered by the stocking - But it was noted some mild extention of redness over onto ant chest wall and alot of pain in the extremity. The redness and pain have dramatically improved over past 48hrs...She still has quite a bit of lymphedema in the arm She reports that in the past she benefits from lymphedema massage. She has a therapist in [place] and may need treatment after the infection resolved. also she has a lymphedema pump at home never used Continue elevation of the left arm. (2) Hand laceration Status: Acute Plan: - Pt accidentally cut her left hand the day prior to admission with a clean kitchen knife. - This wound does not appear significantly infected and only minimal surrounding cellulitic changes. - Follow clinically. (3) Lymphedema Status: Chronic Plan: - As noted above. (4) HTN (hypertension) Status: Chronic Plan: - Continue medication. (5) H/O malignant neoplasm of breast Status: Chronic Plan: - Outpatient follow-up. (6) Hypothyroid Status: Chronic Plan: - TSH 3.79 in August of this year. Continue medication. (7) History of bowel resection Status: Chronic Plan: - Continue ostomy care. (8) History of recurrent deep vein thrombosis (DVT) Status: Chronic Plan: - INR therapeutic. - Continue current warfarin dose. - We'll need to monitor more closely while on antibiotic. Rhett Beckett MD Sep 26, 2016 13:21
[2016-09-26] MEDS ORDERED: PHARMACY ORDERED LAB ONE (13:45)
[2016-09-26] MEDS: VANCOMYCIN INJ 1,250 MG in SODIUM CHLOR 0.9% 250 ML INJ 250 ML IV SCH (14:37)
[2016-09-26] MEDS: WARFARIN SOD 5 MG TAB PO SCH (16:08)
[2016-09-26] MEDS: WARFARIN SOD 2 MG TAB PO SCH (16:08)
[2016-09-26] MEDS: DULoxetine HCl DR 20 MG CAP PO SCH (21:44)
[2016-09-26] MEDS: LORazepam 0.5 MG TAB PO PRN (22:39)
[2016-09-27] MEDS ORDERED: VANCOMYCIN INJ 1,250 MG in SODIUM CHLOR 0.9% 250 ML INJ 250 ML IV SCH (03:00)
[2016-09-27 04:39] VITALS: BP 178/74; PULSE 66; RESP 21; TEMP 96.5; O2SAT 96
[2016-09-27] MEDS: ACETAMINOPHEN/HYDROcodone 325 MG/5 MG TAB PO PRN ×3 (04:45→21:12)
[2016-09-27 05:55] VITALS: BP 143/60; PULSE 61
[2016-09-27] MEDS: LEVOTHYROXINE SODIUM 50 MCG TAB PO SCH (05:56)
[2016-09-27 08:01] VITALS: BP 156/67; PULSE 62; RESP 20; TEMP 96.4; O2SAT 96
[2016-09-27] MEDS: NIFEdipine 30 MG SUSTAINED RELEASE TAB PO SCH (09:09)
[2016-09-27] MEDS: SODIUM CHLORIDE 0.9% FLUSH 10 ML FLUSH IV FLUSH SCH ×2 (09:09→21:00)
[2016-09-27] MEDS: FUROSEMIDE 20 MG TAB PO SCH (09:09)
[2016-09-27] MEDS: TIMOLOL MALEATE 0.5% OPHT SOLN 5 ML BTL EACH EYE SCH (09:09)
[2016-09-27] MEDS: METOPROLOL TARTRATE 50 MG TAB PO SCH ×2 (09:09→21:07)
[2016-09-27] MEDS: LISINOPRIL 20 MG TAB PO SCH ×2 (09:09→21:07)
[2016-09-27] MEDS: POTASSIUM CHLORIDE 20 MEQ CONTROLLED RELEASE TAB PO SCH (09:09)
--- NOTE | 2016-09-27 12:28 | HHI.PR ---
Subjective Remarks Pt overall feeling well today. She denies any further pain in the LUE, still with significant swelling/ lymphedema Objective Vitals Vital Signs Date Time Temp Pulse Resp B/P Pulse Ox O2 Delivery O2 Flow Rate FiO2 09/27/16 08:01 96.4 62 20 156/67 96 09/27/16 07:24 Nasal Cannula 2.00 09/27/16 05:55 61 143/60 09/27/16 04:39 96.5 66 21 178/74 96 09/26/16 23:46 99.2 65 20 137/72 95 09/26/16 21:52 98.0 84 19 157/69 93 09/26/16 16:00 96.9 68 17 138/62 98 09/26/16 09/26/16 09/27/16 14:59 22:59 06:59 Intake Total 480 ml Output Total 250 ml Balance 480 ml -250 ml Intake Oral 480 ml Output Stool Total 250 ml # Voids 3 1 # Bowel Movements 1 1 Result Diagram: 09/25/16 0838 09/26/16 0812 Other Results Laboratory Tests Test 09/26/16 09/26/16 08:12 13:54 Prothrombin Time 34.1 SEC Prothromb Time International 2.9 RATIO Ratio Creatinine 0.48 MG/DL Estimat Glomerular Filtration 123 ML/MIN Rate Vancomycin Level Trough 5.0 MCG/ML Objective Remarks General: NAD, AAOx3 Chest: CTA Cardiac: Regular Abd: +BS, soft ND/NT, ostomy on left abdomen Ext: LUE with erythema from the wrist up to the axilla with streaking into the left chest, resolved A/P Problem List: (1) Cellulitis of arm, left Status: Acute Plan: - Pt is an 86 y/o female with hx of left breast cancer s/p left mastectomy/chemo /xrt and chronic lymphedema left upper extremity - Pt admitted with erythema of the LUE located mainly in the area where her compression stocking is typically worn. - In the ED pt was given IV Clindamycin and Vancomycin. - Initially thought to possibly be a contact dermatitis reaction from her compression stocking as the area of redness from wrist to shoulder perfectly matched the area covered by the stocking - But it was noted some mild extension of redness over onto ant chest wall and a lot of pain in the extremity she was converted from oral antibiotics to IV Vancomycin. - The redness and pain have dramatically improved over past 2-3 days - She still has quite a bit of lymphedema in the arm and reports that in the past she has benefited from lymphedema massage. She has a therapist in [place] and may need treatment after the infection resolved. She also has a lymphedema pump at home which she has never used. - Continue elevation of the left arm. - We will convert to oral antibiotics with Levaquin 500mg po daily today and monitor clinical status. - I informed the pts lymphedema specialist, Jonatan Jimenez, at [facility] in [facility], about the pts condition and issues and they would like the pt to be cleared to resume PT by her PCP before continuing with lymphedema therapy. (2) Hand laceration Status: Acute Plan: - Pt accidentally cut her left hand the day prior to admission with a clean kitchen knife. - This wound does not appear significantly infected and only minimal surrounding cellulitic changes. - Follow clinically. (3) Lymphedema Status: Chronic Plan: - As noted above. (4) HTN (hypertension) Status: Chronic Plan: - Continue medication. (5) H/O malignant neoplasm of breast Status: Chronic Plan: - Outpatient follow-up. (6) Hypothyroid Status: Chronic Plan: - TSH 3.79 in August of this year. Continue medication. (7) History of bowel resection Status: Chronic Plan: - Continue ostomy care. (8) History of recurrent deep vein thrombosis (DVT) Status: Chronic Plan: - INR therapeutic. - Continue current warfarin dose. - We'll need to monitor more closely while on antibiotic. Assessment and Plan Patient examined. Assessment and plan formulated with Zoey Rodgers PA-C. I agree with the above. Zoey Rodgers Sep 27, 2016 12:28 Kale Kaur DO Oct 01, 2016 15:50
[2016-09-27 12:38] VITALS: BP 146/69; PULSE 60; RESP 20; TEMP 96.2; O2SAT 94
[2016-09-27] MEDS: LEVOFLOXACIN 500 MG TAB PO SCH (14:19)
[2016-09-27] MEDS: WARFARIN SOD 2 MG TAB PO SCH (16:17)
[2016-09-27] MEDS: WARFARIN SOD 5 MG TAB PO SCH (16:17)
[2016-09-27 16:39] VITALS: BP 164/70; PULSE 66; RESP 20; TEMP 96.7; O2SAT 94
[2016-09-27 20:42] VITALS: BP 146/61; PULSE 64; RESP 19; TEMP 96.6; O2SAT 93
[2016-09-27] MEDS: DULoxetine HCl DR 20 MG CAP PO SCH (21:07)
[2016-09-27] MEDS: LORazepam 0.5 MG TAB PO PRN (21:56)
[2016-09-28 00:19] VITALS: BP 153/81; PULSE 68; RESP 19; TEMP 96.4; O2SAT 95
[2016-09-28] MEDS ORDERED: PHARMACY ORDERED LAB ONE (02:45)
[2016-09-28 05:55] VITALS: BP 145/55; PULSE 64; RESP 18; TEMP 96; O2SAT 94
[2016-09-28] MEDS: LEVOTHYROXINE SODIUM 50 MCG TAB PO SCH (06:12)
[2016-09-28 07:22] LABS: INTERNATIONAL NORMALIZED RATIO 3.7 RATIO; PROTHROMBIN TIME - PATIENT 42.8 SEC (9.8-11.6)
[2016-09-28 08:12] VITALS: BP 146/64; PULSE 64; RESP 21; TEMP 96.7; O2SAT 95
[2016-09-28] MEDS: TIMOLOL MALEATE 0.5% OPHT SOLN 5 ML BTL EACH EYE SCH (09:29)
[2016-09-28] MEDS: POTASSIUM CHLORIDE 20 MEQ CONTROLLED RELEASE TAB PO SCH (09:31)
[2016-09-28] MEDS: FUROSEMIDE 20 MG TAB PO SCH (09:32)
[2016-09-28] MEDS: NIFEdipine 30 MG SUSTAINED RELEASE TAB PO SCH (09:32)
[2016-09-28] MEDS: METOPROLOL TARTRATE 50 MG TAB PO SCH ×2 (09:32→21:22)
[2016-09-28] MEDS: LISINOPRIL 20 MG TAB PO SCH ×2 (09:32→21:22)
[2016-09-28] MEDS: ACETAMINOPHEN/HYDROcodone 325 MG/5 MG TAB PO PRN ×2 (09:33→21:22)
[2016-09-28] MEDS: SODIUM CHLORIDE 0.9% FLUSH 10 ML FLUSH IV FLUSH SCH ×2 (09:33→21:27)
--- NOTE | 2016-09-28 11:01 | HHI.PR ---
Subjective Remarks No new complaints Afebrile Objective Vitals Vital Signs Date Time Temp Pulse Resp B/P Pulse Ox O2 Delivery O2 Flow Rate FiO2 09/28/16 08:12 96.7 64 21 146/64 95 09/28/16 05:55 96.0 64 18 145/55 94 09/28/16 00:19 96.4 68 19 153/81 95 09/27/16 20:42 96.6 64 19 146/61 93 09/27/16 16:39 96.7 66 20 164/70 94 09/27/16 12:38 96.2 60 20 146/69 94 09/27/16 09/27/16 09/28/16 15:00 23:00 07:00 Intake Total 720 ml Output Total 500 ml Balance 220 ml Intake Oral 720 ml Output Stool Total 500 ml # Voids 6 2 # Bowel Movements 1 Result Diagram: 09/25/16 0838 09/26/16 0812 Other Results Laboratory Tests Test 09/26/16 09/28/16 13:54 06:54 Vancomycin Level Trough 5.0 MCG/ML Prothrombin Time 42.8 SEC Prothromb Time International 3.7 RATIO Ratio Objective Remarks General: NAD, AAOx3 Chest: CTA Cardiac: Regular Abd: +BS, soft ND/NT, ostomy on left abdomen Ext: LUE with erythema from the wrist up to the axilla with streaking into the left chest, resolved A/P Problem List: (1) Cellulitis of arm, left Status: Acute Plan: - Pt is an 86 y/o female with hx of left breast cancer s/p left mastectomy/chemo /xrt and chronic lymphedema left upper extremity - Pt admitted with erythema of the LUE located mainly in the area where her compression stocking is typically worn. - In the ED pt was given IV Clindamycin and Vancomycin. - Initially thought to possibly be a contact dermatitis reaction from her compression stocking as the area of redness from wrist to shoulder perfectly matched the area covered by the stocking - But it was noted some mild extension of redness over onto ant chest wall and a lot of pain in the extremity she was converted from oral antibiotics to IV Vancomycin. - The redness and pain have dramatically improved over past 2-3 days - She still has quite a bit of lymphedema in the arm and reports that in the past she has benefited from lymphedema massage. She [place] therapist [place] and may need treatment after the infection resolved. She also has a lymphedema pump at home which she has never used. - Continue elevation of the left arm. - We will convert to oral antibiotics with Levaquin 500mg po daily today and monitor clinical status. - I informed the pts lymphedema specialist, Jonatan Jimenez, at [facility] in [facility], about the pts condition and issues and they would like the pt to be cleared to resume PT by her PCP before continuing with lymphedema therapy. - Pts INR was supra-therapeutic today at 3.7 - We will hold discharge for today and repeat INR in AM (2) Hand laceration Status: Acute Plan: - Pt accidentally cut her left hand the day prior to admission with a clean kitchen knife. - This wound does not appear significantly infected and only minimal surrounding cellulitic changes. - Follow clinically. (3) Lymphedema Status: Chronic Plan: - As noted above. (4) HTN (hypertension) Status: Chronic Plan: - Continue medication. (5) H/O malignant neoplasm of breast Status: Chronic Plan: - Outpatient follow-up. (6) Hypothyroid Status: Chronic Plan: - TSH 3.79 in August of this year. Continue medication. (7) History of bowel resection Status: Chronic Plan: - Continue ostomy care. (8) History of recurrent deep vein thrombosis (DVT) Status: Chronic Plan: - INR supra-therapeutic today - Hold warfarin dose today - Repeat in AM - We'll need to monitor more closely while on antibiotic. Assessment and Plan Patient examined. Assessment and plan formulated with Zoey Rodgers PA-C. I agree with the above. Zoey Rodgers Sep 28, 2016 11:01 Kale Kaur DO Oct 01, 2016 15:50
[2016-09-28 12:09] VITALS: BP 142/68; PULSE 61; RESP 21; TEMP 95.7; O2SAT 96
--- NOTE | 2016-09-28 13:02 | RADRPT ---
EXAM DATE/TIME: 09/28/2016 12:29 [place] COMPARISON: CHEST SINGLE AP, August 14, 2015, 4:38. INDICATIONS : Short of breath since this morning. MEDICAL HISTORY : Hypertension. Cardiovascular disease SURGICAL HISTORY : Appendectomy. Mastectomy, left.abscess drain ENCOUNTER: Subsequent ACUITY: 3 days PAIN SCORE: 0/10 LOCATION: Bilateral chest FINDINGS: The heart is mildly enlarged. There is minimal left basilar effusion. There is diffuse interstitial p rominence. The overall appearance of the chest is significantly improved compared to previous dated . The visualized bony structures are grossly intact. CONCLUSION: 1. Minimal left basilar effusion. 2. Significant improvement in the chest compared to previous dated 08/14/15 Ervin Harman MD on September 28, 2016 at 12:58 Board Certified Radiologist. This report was verified electronically.
[2016-09-28] MEDS: LEVOFLOXACIN 500 MG TAB PO SCH (14:04)
--- NOTE | 2016-09-28 15:31 | PD.WCN.NOT ---
Wound Consult Description: JUWAN OROZCO abdomen consult per Dr Hernández. Communicated with: JASSI Echevarria Recommendation: Follow up with Lymphedema clinic outpatient for left upper extremity. Continue with current dressing changes every 2 days per outpatient card lacer jacquard (ointment and cover dressing). Additional Information: Colostomy appliance intact, no leaks, with blue liquid noted in collection bag. Emeli Pablo [facility] Sep 28, 2016 15:31
[2016-09-28 16:15] VITALS: BP 153/78; PULSE 70; RESP 20; TEMP 96.8; O2SAT 94
[2016-09-28 20:00] VITALS: BP 162/70; PULSE 68; RESP 24; TEMP 98.5; O2SAT 96
[2016-09-28] MEDS: DULoxetine HCl DR 20 MG CAP PO SCH (21:22)
[2016-09-28] MEDS: LORazepam 0.5 MG TAB PO PRN (22:00)
[2016-09-29 00:35] VITALS: BP 164/71; PULSE 66; RESP 22; TEMP 97.4; O2SAT 94
[2016-09-29 05:30] VITALS: BP 169/67; PULSE 62; RESP 21; TEMP 96.8; O2SAT 94
[2016-09-29] MEDS: LEVOTHYROXINE SODIUM 50 MCG TAB PO SCH ×2 (05:31→10:12)
[2016-09-29 07:40] VITALS: BP 173/75; PULSE 65; RESP 19; TEMP 96.4; O2SAT 92
[2016-09-29 08:23] LABS: INTERNATIONAL NORMALIZED RATIO 2.8 RATIO; PROTHROMBIN TIME - PATIENT 32.3 SEC (9.8-11.6)
[2016-09-29] MEDS: METOPROLOL TARTRATE 50 MG TAB PO SCH (10:12)
[2016-09-29] MEDS: FUROSEMIDE 20 MG TAB PO SCH (10:12)
[2016-09-29] MEDS: NIFEdipine 30 MG SUSTAINED RELEASE TAB PO SCH (10:13)
[2016-09-29] MEDS: LISINOPRIL 20 MG TAB PO SCH (10:13)
[2016-09-29] MEDS: POTASSIUM CHLORIDE 20 MEQ CONTROLLED RELEASE TAB PO SCH (10:14)
[2016-09-29] MEDS: ACETAMINOPHEN/HYDROcodone 325 MG/5 MG TAB PO PRN (10:14)
[2016-09-29] MEDS: SODIUM CHLORIDE 0.9% FLUSH 10 ML FLUSH IV FLUSH SCH (10:15)
[2016-09-29] MEDS: TIMOLOL MALEATE 0.5% OPHT SOLN 5 ML BTL EACH EYE SCH (10:15)
[2016-09-29 11:10] VITALS: BP 145/64; PULSE 60; RESP 19; TEMP 96.9; O2SAT 95
[2016-09-29 11:14] VITALS: RESP 16
[2016-09-29] MEDS ORDERED: LEVA500T20 PO (13:04)
--- NOTE | 2016-09-29 13:07 | HHI.FF ---
Face to Face Verification Diagnosis: (1) Cellulitis of arm, left (2) Lymphedema (3) HTN (hypertension) Home Health Nursing Order: Nursing assessment with vital signs Instructions: Please check INR on 10/01/16, Tuesday10/04/16, and 10/07/16 with results to her PCP, Dr. Gar I have seen patient Nesiha Baires on 09/29/16. My clinical findings support the need for the requested home health care services because: Infection w/ risk of complications I certify that my clinical findings support that this patient is homebound because: Unable to use public transportation Zoey Rodgers Sep 29, 2016 13:07 Kale Kaur DO Oct 01, 2016 15:51
--- NOTE | 2016-09-29 13:10 | HHI.DCPOC ---
Discharge Care Plan Diagnosis: (1) Cellulitis of arm, left (2) Lymphedema (3) HTN (hypertension) Goals to Promote Your Health - Resume your Coumadin on , 09/30/16, at your previous home dosing of 7.5mg on // and 6mg on ///[place] - INR to be checked on 10/01/16 with results to your PCP, Dr. Dano Roberts. - Please followup with Dr. Gar within 1 week, call for an appt. - Dr. Gar will need to provide clearance to the PT to resume lymphedema treatments. Directions to Meet Your Goals Take your medications as prescribed Follow your dietary instruction Follow activity as directed Keep your appointments as scheduled Take your immunizations and boosters as scheduled If your symptoms worsen call your PCP, if no PCP go to Urgent Care Center or Emergency Room Smoking is Dangerous to Your Health. Avoid second hand smoke Call the 24-hour hour crisis hotline for domestic abuse at Zoey Rodgers Sep 29, 2016 13:10 Kale Kaur DO Oct 01, 2016 15:53
--- NOTE | 2016-09-29 13:19 | HHI.DS ---
Discharge Summary Admission Date Sep 24, 2016 at 10:39 Discharge Date: Sep 29, 2016 Admitting Diagnosis LUE Cellulitis (1) Cellulitis of arm, left Diagnosis: Principal (2) Hand laceration Diagnosis: Secondary (3) Lymphedema Diagnosis: Secondary (4) HTN (hypertension) Diagnosis: Secondary (5) H/O malignant neoplasm of breast (6) Hypothyroid Diagnosis: Secondary (7) History of bowel resection Diagnosis: Secondary (8) History of recurrent deep vein thrombosis (DVT) Diagnosis: Secondary Brief History Patient is an 86-year-old female with significant medical history and noted history of chronic lymphedema to the left upper extremity presents emergency Department with redness and swelling to the left upper extremity since yesterday. Patient states she was in the kitchen and a clean knife fell on her hand and cut her between the first and second digit on the left, she states since then she noticed redness and swelling of the left upper extremity which has progressed rapidly distally to proximally. She denies any fever denies any nausea vomiting abdominal pain diarrhea. She is on Coumadin for a history of recurrent blood clots, she is due for her dose now. On further questioning it is noted that patient generally wears a compression- type device on her left upper extremity. She states she usually keeps it in place for a couple of days at a time but had recently left in place for approximately 5-6 days in a row. She notes that when she removed the compression device she noted the redness. She thought it may be associated with the laceration although the redness is actually not around the laceration on her hand but more so in the restricted distribution to wear her compression device is generally in place on the left upper extremity. CBC/BMP: 09/25/16 0838 09/26/16 0812 Significant Findings Laboratory Tests Test 09/28/16 09/29/16 06:54 06:49 Prothrombin Time 42.8 SEC 32.3 SEC (9.8-11.6) (9.8-11.6) Imaging Last Impressions Chest X-Ray 09/28/16 0000 Signed Impressions: Service Date/Time: Wednesday, September 28, 2016 12:29 - CONCLUSION: 1. Minimal left basilar effusion. 2. Significant improvement in the chest compared to previous dated 08/14/15 Ervin Harman MD PE at Discharge General: NAD, AAOx3 Chest: CTA Cardiac: Regular Abd: +BS, soft ND/NT, ostomy on left abdomen Ext: LUE with erythema from the wrist up to the axilla with streaking into the left chest, resolved Hospital Course Pt is an 86 y/o female with hx of left breast cancer s/p left mastectomy/chemo/ xrt and chronic lymphedema left upper extremity. Pt admitted with erythema of the LUE located mainly in the area where her compression stocking is typically worn. Pt accidentally cut her left hand the day prior to admission with a clean kitchen knife but this wound did not appear significantly infected and only minimal surrounding cellulitic changes. In the ED pt was given IV Clindamycin and Vancomycin. Initially thought to possibly be a contact dermatitis reaction from her compression stocking as the area of redness from wrist to shoulder perfectly matched the area covered by the stocking. But the day following admission there was noted some mild extension of redness over onto ant chest wall and a lot of pain in the extremity she was converted from oral antibiotics to IV Vancomycin. The redness and pain dramatically improved over following 2-3 days. She still has quite a bit of lymphedema in the arm and reports that in the past she has benefited from lymphedema massage. She has a therapist in [place] and may need treatment after the infection resolved. She also has a lymphedema pump at home which she has never used. Pt was converted to oral antibiotics with Levaquin 500mg po daily on 09/27/16 and tolerated this well. The pts lymphedema therapist, Jonatan Jimenez, at [facility] in [facility], was informed about the pts condition and they would like the pt to be cleared to resume PT by her PCP before continuing with lymphedema therapy. On 09/28 the pts INR was supra-therapeutic at 3.7 and her discharge was held. Her Coumadin was held on 09/28. Repeat INR on 09/29 noted INR of 2.8. Pt was ambulating without difficulty and stable for discharge on 09/29/16. Pt will complete a total of 7 days of Levaquin 500mg once daily. Resume your Coumadin on , 09/30/16, at previous home dosing of 7.5mg on // and 6mg on ///[place] INR to be checked on 6/23/17 with results to PCP, Dr. Gar. Pt will followup with Dr. Gar within [address] Gar will need to provide clearance to the PT to resume lymphedema treatments. Pt Condition on Discharge: Stable Discharge Disposition: Disch w/ Home Health Serv Discharge Instructions DIET: Follow Instructions for: Coumadin (Warfarin) Diet Activities you can perform: Regular-No Restrictions Follow up Referrals: PCP Follow-up - [address] Gar New Medications: Levofloxacin (Levaquin) 500 Mg Tablet 500 MG PO Q24H Infection #4 TAB Continued Medications: Duloxetine DR (Cymbalta DR) 20 Mg Capdr 20 MG PO DAILY #30 Ref 0 CAP Furosemide (Lasix) 20 Mg Tab 20 MG PO DAILY #30 Ref 0 TAB Hydrocodone-Acetaminophen ([place]) 5-325 mg Tab 1 TAB PO Q6H PRN RT KNEE PAIN Ref 0 TAB Levothyroxine (Levoxyl) 50 Mcg Tab 50 MCG PO DAILY Thyroid #30 Ref 0 TAB Lisinopril (Lisinopril) 20 Mg Tab 20 MG PO BID #30 Ref 0 TAB Lorazepam (Lorazepam) 0.5 Mg Tab 0.5 MG PO Q8HR PRN ANXIETY Ref 0 TAB Metoprolol Tartrate (Metoprolol Tartrate) 50 Mg Tab 50 MG PO BID #60 Ref 0 TAB Nifedipine ER 24 HR (Nifedipine ER 24 HR) 30 Mg Tab 30 MG PO DAILY #30 Ref 0 TAB Potassium Chloride ER (K-Tab) 20 Meq Tab 20 MEQ PO DAILY Electrolyte Replacement #30 Ref 0 TAB Timolol Opth Drops (Timolol Opth Drops) 0.5 % Soln 1 DROP EACH EYE DAILY Glaucoma #1 Ref 0 BOTTLE Warfarin (Warfarin) 6 Mg Tab 6 MG PO SUMOWEFR Take 1 tablet (6mg) daily in Tuesday,Tuesday,Tuesday and Tuesday Blood Clot Prevention #30 Ref 0 TAB Warfarin (Coumadin) 7.5 Mg Tab 7.5 MG PO TUTHSA Take 1 tablet daily on Tuesday, and Tuesday Prevent Blood Clot #30 Ref 0 TAB Additional Information Patient examined. Assessment and plan formulated with Zoey Rodgers PA-C. I agree with the above. Zoey Rodgers Sep 29, 2016 13:18 Kale Kaur DO Oct 01, 2016 15:53
[2016-09-29] MEDS: LEVOFLOXACIN 500 MG TAB PO SCH (13:27)
== END 2016-09-29 14:33 | disposition home health service (06) | DRG 603 ==
LOC: NEPC 15:48 → NEDA 19:56 → NEPGCP 21:59 → OBSVTOIN 09-24 10:39 → N05A 09-24 18:16
PROVIDERS: ADMIT Hospitalist; ATTEND Hospitalist
DX: L03.114 Cellulitis of left upper limb (principal); S61.412A Laceration without foreign body of left hand, initial encounter; J44.9 Chronic obstructive pulmonary disease, unspecified; E66.01 Morbid (severe) obesity due to excess calories; I10 Essential (primary) hypertension; F41.9 Anxiety disorder, unspecified; I89.0 Lymphedema, not elsewhere classified; W26.0XXA Contact with knife, initial encounter; I70.0 Atherosclerosis of aorta; E03.9 Hypothyroidism, unspecified; R79.1 Abnormal coagulation profile; Y93.89 Activity, other specified; Y92.000 Kitchen of unspecified non-institutional (private) residence as the place of occurrence of the external cause; Y99.9 Unspecified external cause status; Z79.01 Long term (current) use of anticoagulants; Z86.711 Personal history of pulmonary embolism; M17.11 Unilateral primary osteoarthritis, right knee; Z85.3 Personal history of malignant neoplasm of breast; Z92.21 Personal history of antineoplastic chemotherapy; Z88.6 Allergy status to analgesic agent; Z88.0 Allergy status to penicillin; Z88.2 Allergy status to sulfonamides; Z91.09 Other allergy status, other than to drugs and biological substances; Z86.718 Personal history of other venous thrombosis and embolism; Z90.12 Acquired absence of left breast and nipple; Z92.3 Personal history of irradiation; Z93.3 Colostomy status
CPT/HCPCS: 71010; 76937; 80048; 80202; 82565; 83605; 83735; 85025; 85610; 85730; 87040; 96374; G0378; J3370; J7050

== ENCOUNTER 2016-11-07 21:21 | Inpatient (IN) | payer MEDICARE ==
[~2016-11-07] VITALS: Ht 154.9 cm; Wt 92.5 kg
[~2016-11-07 21:21] MED LIST changes: +COUM7.5T PO; +LEVA500T20 PO; +NORC5TAB PO; -TIMO0.255 EACH EYE; +TIMO0.5S30 EACH EYE
[2016-11-07 21:23] VITALS: BP 187/84; PULSE 87; RESP 18; TEMP 98.2; O2SAT 96
[2016-11-07] MEDS ORDERED: diphenhydrAMINE HCL 50 MG/ML VIAL IV PUSH ONE (22:30)
[2016-11-07] MEDS ORDERED: VANCOMYCIN INJ 1,000 MG in SODIUM CHLOR 0.9% 250 ML INJ 250 ML IV ONE (22:30)
--- NOTE | 2016-11-07 22:36 | PD ---
HPI Chief Complaint: Injury Time Seen by Provider: 22:25 Travel History International Travel<30 days: No Contact w/Intl Traveler<30days: No Traveled to known affect area: No History of Present Illness HPI 86-year-old female with history of chronic lymphedema in the left upper extremity presents for evaluation of acute redness, pain, itching to the medial left arm. She reports that she sustained a small wound on her dorsal left hand this morning when she accidentally hit her hand against the door frame. She reports that this evening she developed redness and pain to the skin of the left arm that extends to the chest wall. She reports that she had similar symptoms in September when she was admitted for cellulitis. She improved on antibiotics at that time. She denies any fevers or chills, chest pain or shortness of breath. She has no other complaints at this time. PFSH Past Medical History Hx Anticoagulant Therapy: Yes (Coumadin) Arthritis: Yes (osteoarthritis right knee) Asthma: No Autoimmune Disease: Yes Blood Disorders: No Anxiety: Yes Depression: No Heart Rhythm Problems: No Cancer: Yes (BREAST) Cardiovascular Problems: Yes (HTN) High Cholesterol: No Chemotherapy: Yes (2000) Chest Pain: No Congestive Heart Failure: No COPD: Yes Diabetes: No Diminished Hearing: No Endocrine: Yes Gastrointestinal Disorders: Yes (COLOSTOMY) Glaucoma: Yes Genitourinary: No Hypertension: Yes Immune Disorder: No Medical other: Yes (DVT LLE) Musculoskeletal: No Neurologic: No Psychiatric: Yes Reproductive: No Respiratory: Yes (PULMONARY EMBOLUS, PNEUMONIA, COPD) Radiation Therapy: Yes Sleep Apnea: No Thyroid Disease: Yes (HYPO) Influenza Vaccination: Yes : 4 Para: 1 Miscarriage: 3 Past Surgical History Abdominal Surgery: Yes (COLON RESECTION WITH COLOSTOMY) AICD: No Appendectomy: Yes Cardiac Surgery: No Ear Surgery: No Endocrine Surgery: No Eye Surgery: Yes (CATARACTS) Genitourinary Surgery: No Gynecologic Surgery: Yes (2000 MASTECTOMY LEFT, LEFT SALPINGO OOPHORECTOMY) Joint Replacement: No Oral Surgery: Yes (TONSILLECTOMY) Pacemaker: No Thoracic Surgery: No Tonsillectomy: Yes Other Surgery: Yes (LEFT MASTECTOMY) Social History Alcohol Use: No Tobacco Use: No Substance Use: No Allergies-Medications (Allergen,Severity, Reaction): Coded Allergies: Adhesives (Verified Allergy, Severe, Hives, 11/07/16) Aspirin (Verified Allergy, Severe, 11/07/16) Nonsteroidal Anti-Inflammatory Agts (Verified Allergy, Severe, 11/07/16) Penicillin (Verified Allergy, Intermediate, Hives, 11/07/16) Sulfa (Verified Allergy, Intermediate, Rash, 11/07/16) Reported Meds & Prescriptions Reported Meds & Active Scripts Active Reported [place] (Hydrocodone-Acetaminophen) 5-325 mg Tab 1 Tab PO Q6H PRN Coumadin (Warfarin) 7.5 Mg Tab 7.5 Mg PO TUTHSA Take 1 tablet daily on Tuesday, and Tuesday Timolol Opth Drops 0.5 % Soln 1 Drop EACH EYE DAILY Levoxyl (Levothyroxine Sodium) 50 Mcg Tab 50 Mcg PO DAILY Metoprolol Tartrate 50 Mg Tab 50 Mg PO BID Warfarin 6 Mg Tab 6 Mg PO SUMOWEFR Take 1 tablet (6mg) daily in Tuesday,Tuesday,Tuesday and Tuesday Nifedipine ER 24 HR (Nifedipine) 30 Mg Tab 30 Mg PO DAILY Lorazepam 0.5 Mg Tab 0.5 Mg PO Q8HR PRN Lisinopril 20 Mg Tab 20 Mg PO BID Lasix (Furosemide) 20 Mg Tab 20 Mg PO DAILY K-Tab (Potassium Chloride) 20 Meq Tab 20 Meq PO DAILY Cymbalta DR (Duloxetine HCl) 20 Mg Capdr 20 Mg PO DAILY Review of Systems Except as stated in HPI: all other systems reviewed are Neg Physical Exam Narrative GENERAL: Well-developed well-nourished female in no acute distress SKIN: Warm and dry. There is erythematous and indurated skin noted to the proximal left arm extending to the chest wall. There is a small wound to the dorsal left hand. HEAD: Atraumatic. Normocephalic. EYES: Pupils equal and round. No scleral icterus. No injection or drainage. ENT: No nasal bleeding or discharge. Mucous membranes pink and moist. NECK: Trachea midline. No JVD. CARDIOVASCULAR: Regular rate and rhythm. No murmur appreciated. RESPIRATORY: No accessory muscle use. Clear to auscultation. Breath sounds equal bilaterally. GASTROINTESTINAL: Abdomen soft, non-tender, nondistended. Hepatic and splenic margins not palpable. MUSCULOSKELETAL: No obvious deformities. Skin as noted above with nonpitting edema to the left upper extremity. NEUROLOGICAL: Awake and alert. No obvious cranial nerve deficits. Motor grossly within normal limits. Normal speech. PSYCHIATRIC: Appropriate mood and affect; insight and judgment normal. Data Data Last Documented VS Vital Signs Date Time Temp Pulse Resp B/P Pulse Ox O2 Delivery O2 Flow Rate FiO2 11/07/16 21:23 98.2 87 18 187/84 96 Room Air Orders Complete Blood Count With Diff (11/07/16 22:30) Comprehensive Metabolic Panel (11/07/16 22:30) Lactic Acid Sepsis Protocol (11/07/16 22:30) Blood Culture (11/07/16 22:30) Iv Access Insert/Monitor (11/07/16 22:30) Vancomycin Inj (Vancomycin Inj) (11/07/16 22:30) Diphenhydramine Inj (Benadryl Inj) (11/07/16 22:30) Prothrombin Time / Inr (Pt) (11/07/16 22:30) Morphine Inj (Morphine Inj) (11/07/16 23:00) Sodium Chlor 0.9% 1000 Ml Inj (Ns 1000 M (11/08/16 00:15) Admit Order (Ed Use Only) (11/08/16 00:17) Solar Applications Development Engineer / Telemetry TRACY.Q8H (11/08/16 00:19) Vital Signs (Adult) Q4H (11/08/16 00:19) Diet Regular Basic (11/08/16 Breakfast) Activity Bed Rest With Brp (11/08/16 00:19) ^ Saline Lock (11/08/16 00:19) Resp Oxygen Mark C Titrat 1-4 L (11/08/16 ) Notify Dr: Other (11/08/16 00:19) Ondansetron Inj (Zofran Inj) (11/08/16 00:30) Acetaminophen (Tylenol) (11/08/16 00:30) Sodium Chloride 0.9% Flush (Ns Flush) (11/08/16 09:00) Sodium Chloride 0.9% Flush (Ns Flush) (11/08/16 00:30) Vancomycin Inj (Vancomycin Inj) (11/08/16 11:00) Lisinopril (Prinivil) (11/08/16 00:30) Metoprolol Tartrate (Lopressor) (11/08/16 00:30) Duloxetine (Trisha Cash) (11/08/16 00:30) Labs Laboratory Tests Test 11/07/16 11/07/16 22:50 23:00 White Blood Count 12.7 TH/MM3 Red Blood Count 5.12 MIL/MM3 Hemoglobin 14.1 GM/DL Hematocrit 43.4 % Mean Corpuscular Volume 84.7 FL Mean Corpuscular Hemoglobin 27.5 PG Mean Corpuscular Hemoglobin 32.5 % Concent Red Cell Distribution Width 17.6 % Platelet Count 231 TH/MM3 Mean Platelet Volume 8.6 FL Neutrophils (%) (Auto) 87.3 % Lymphocytes (%) (Auto) 6.4 % Monocytes (%) (Auto) 4.6 % Eosinophils (%) (Auto) 1.2 % Basophils (%) (Auto) 0.5 % Neutrophils # (Auto) 11.1 TH/MM3 Lymphocytes # (Auto) 0.8 TH/MM3 Monocytes # (Auto) 0.6 TH/MM3 Eosinophils # (Auto) 0.2 TH/MM3 Basophils # (Auto) 0.1 TH/MM3 CBC Comment DIFF FINAL Differential Comment Prothrombin Time 31.4 SEC Prothromb Time International 2.7 RATIO Ratio Sodium Level 138 MEQ/L Potassium Level 4.1 MEQ/L Chloride Level 105 MEQ/L Carbon Dioxide Level 22.2 MEQ/L Anion Gap 11 MEQ/L Blood Urea Nitrogen 17 MG/DL Creatinine 0.96 MG/DL Estimat Glomerular Filtration 55 ML/MIN Rate Random Glucose 120 MG/DL Calcium Level 9.5 MG/DL Total Bilirubin 0.5 MG/DL Aspartate Amino Transf 23 U/L (AST/SGOT) Alanine Aminotransferase 21 U/L (ALT/SGPT) Alkaline Phosphatase 95 U/L Total Protein 7.8 GM/DL Albumin 3.4 GM/DL Lactic Acid Level 1.7 mmol/L [facility] Medical Decision Making Medical Screen Exam Complete: Yes Emergency Medical Condition: Yes Medical Record Reviewed: Yes Differential Diagnosis Cellulitis, contact dermatitis, allergic reaction, DVT Narrative Course 86-year-old female who developed erythematous and indurated skin to the proximal left forearm after sustaining a small wound to the dorsal left hand this morning. She does have a history of lymphedema and seems to be prone to infections in the left upper extremity. On examination the skin is quite erythematous and indurated and extends to the chest wall. Plan is for basic lab work, blood cultures. She will be given a dose of vancomycin and Benadryl. 2300:At the end of my shift the patient was signed out to Dr. Epstein for disposition. Orville Obrien Nov 07, 2016 22:36
[2016-11-07] MEDS ORDERED: MORPHINE SULFATE 4 MG/ML INJ IV PUSH ONE (23:00)
[2016-11-07 23:24] LABS: AUTOMATED NEUTROPHIL # 11.1 TH/MM3 (1.8-7.7); BASOPHIL # 0.1 TH/MM3 (0-0.2); BASOPHIL % 0.5 % (0.0-2.0); EOSINOPHIL # 0.2 TH/MM3 (0-0.4); EOSINOPHIL % 1.2 % (0.0-4.0); HEMATOCRIT 43.4 % (35.0-46.0); HEMO FLAGS DIFF FINAL; LYMPH % 6.4 % (9.0-44.0); LYMPHOCYTE # 0.8 TH/MM3 (1.0-4.8); MEAN CELL VOLUME 84.7 FL (80.0-100.0); MEAN CORPUSCULAR HEMOGLOBIN 27.5 PG (27.0-34.0); MEAN CORPUSCULAR HGB CONC 32.5 % (32.0-36.0); MONO % 4.6 % (0.0-8.0); NEUT % 87.3 % (16.0-70.0); PLATELET COUNT 231 TH/MM3 (150-450); RED BLOOD COUNT 5.12 MIL/MM3 (4.00-5.30); RED CELL DISTRIBUTION WIDTH 17.6 % (11.6-17.2); WHITE BLOOD COUNT 12.7 TH/MM3 (4.0-11.0)
[2016-11-07 23:31] LABS: INTERNATIONAL NORMALIZED RATIO 2.7 RATIO; PROTHROMBIN TIME - PATIENT 31.4 SEC (9.8-11.6)
--- NOTE | 2016-11-07 23:33 | PD ---
Physical Exam Narrative Patient was seen by my elementary assistant principal and signed out to me. Data Data Last Documented VS Vital Signs Date Time Temp Pulse Resp B/P Pulse Ox O2 Delivery O2 Flow Rate FiO2 11/07/16 21:23 98.2 87 18 187/84 96 Room Air Orders Complete Blood Count With Diff (11/07/16 22:30) Comprehensive Metabolic Panel (11/07/16 22:30) Lactic Acid Sepsis Protocol (11/07/16 22:30) Blood Culture (11/07/16 22:30) Iv Access Insert/Monitor (11/07/16 22:30) Vancomycin Inj (Vancomycin Inj) (11/07/16 22:30) Diphenhydramine Inj (Benadryl Inj) (11/07/16 22:30) Prothrombin Time / Inr (Pt) (11/07/16 22:30) Morphine Inj (Morphine Inj) (11/07/16 23:00) Labs Laboratory Tests Test 11/07/16 11/07/16 22:50 23:00 White Blood Count 12.7 TH/MM3 Red Blood Count 5.12 MIL/MM3 Hemoglobin 14.1 GM/DL Hematocrit 43.4 % Mean Corpuscular Volume 84.7 FL Mean Corpuscular Hemoglobin 27.5 PG Mean Corpuscular Hemoglobin 32.5 % Concent Red Cell Distribution Width 17.6 % Platelet Count 231 TH/MM3 Mean Platelet Volume 8.6 FL Neutrophils (%) (Auto) 87.3 % Lymphocytes (%) (Auto) 6.4 % Monocytes (%) (Auto) 4.6 % Eosinophils (%) (Auto) 1.2 % Basophils (%) (Auto) 0.5 % Neutrophils # (Auto) 11.1 TH/MM3 Lymphocytes # (Auto) 0.8 TH/MM3 Monocytes # (Auto) 0.6 TH/MM3 Eosinophils # (Auto) 0.2 TH/MM3 Basophils # (Auto) 0.1 TH/MM3 CBC Comment DIFF FINAL Differential Comment Prothrombin Time 31.4 SEC Prothromb Time International 2.7 RATIO Ratio Sodium Level 138 MEQ/L Potassium Level 4.1 MEQ/L Chloride Level 105 MEQ/L Carbon Dioxide Level 22.2 MEQ/L Anion Gap 11 MEQ/L Blood Urea Nitrogen 17 MG/DL Creatinine 0.96 MG/DL Estimat Glomerular Filtration 55 ML/MIN Rate Random Glucose 120 MG/DL Calcium Level 9.5 MG/DL Total Bilirubin 0.5 MG/DL Aspartate Amino Transf 23 U/L (AST/SGOT) Alanine Aminotransferase 21 U/L (ALT/SGPT) Alkaline Phosphatase 95 U/L Total Protein 7.8 GM/DL Albumin 3.4 GM/DL Lactic Acid Level 1.7 mmol/L [facility] Supervised Visit with [facility]: Yes Interpretation(s) 12:02 AM. CBC WBC 12.7. 87 neutrophil. CMP within normal limits. Lactic acid 1.7. INR 2.7. Narrative Course Vancomycin 1 g IV given. Normal saline solution 70 cc an hour. Diagnosis Primary Impression: Cellulitis of arm, left Additional Impression: Cellulitis of chest wall Admitting Information Admitting Physician Requests: Admit Pj Epstein MD Nov 07, 2016 23:33
[2016-11-07 23:52] LABS: ANION GAP 11 MEQ/L (5-15); AST (GOT) 23 U/L (15-37); BICARBONATE 22.2 MEQ/L (21.0-32.0); BLOOD UREA NITROGEN 17 MG/DL (7-18); CHLORIDE 105 MEQ/L (98-107); GLOMERULAR FILTRATION RATE 55 ML/MIN (>89); POTASSIUM 4.1 MEQ/L (3.5-5.1); SODIUM (NA) 138 MEQ/L (136-145)
[2016-11-07 23:54] LABS: ALT (GPT) 21 U/L (10-53)
[2016-11-07 23:56] LABS: ALKALINE PHOSPHATASE 95 U/L (45-117); TOTAL BILIRUBIN ADULT 0.5 MG/DL (0.2-1.0)
[2016-11-08] VITALS (12 sets, daily range): BP systolic 115–158; BP diastolic 46–71; PULSE 65–89; RESP 17–22; TEMP 96.5–99; O2SAT 92–96
[2016-11-08] MEDS ORDERED: SODIUM CHLOR 0.9% 1000 ML INJ 1,000 ML IV SCH (00:15)
[2016-11-08] MEDS ORDERED: SODIUM CHLORIDE 0.9% FLUSH 10 ML FLUSH IVF PRN (00:30)
[2016-11-08] MEDS ORDERED: METOPROLOL TARTRATE 50 MG TAB PO ONE (00:30)
[2016-11-08] MEDS ORDERED: ONDANSETRON HCL 4 MG/2 ML VIAL IV PRN (00:30)
[2016-11-08] MEDS ORDERED: ACETAMINOPHEN 325 MG TAB PO PRN (00:30)
[2016-11-08] MEDS ORDERED: LISINOPRIL 20 MG TAB PO ONE (00:30)
[2016-11-08] MEDS ORDERED: DULoxetine HCl DR 20 MG CAP PO ONE (00:30)
[2016-11-08] MEDS: ACETAMINOPHEN/HYDROcodone 325 MG/5 MG TAB PO PRN ×3 (04:57→22:24)
[2016-11-08] MEDS: LEVOTHYROXINE SODIUM 50 MCG TAB PO SCH (04:57)
[2016-11-08] MEDS: SODIUM CHLORIDE 0.9% FLUSH 10 ML FLUSH IV FLUSH SCH ×2 (09:00)
[2016-11-08] MEDS ORDERED: Vancomycin Consult Pharmacy 1 EA OTHER SCH (09:45)
--- NOTE | 2016-11-08 09:45 | HHI.HP ---
HPI Service [facility] Hospitalists Primary Care Physician Lanny Gar MD Admission Diagnosis left arm chest wall cellulitis. Chief Complaint: LUE cellulitis Travel History International Travel<30 Days: No Contact w/Intl Traveler <30 Da: No Traveled to Known Affected Are: No History of Present Illness Mrs. Baires is a pleasant 86 y/o female with hx of left breast cancer s/p left mastectomy/chemo/xrt and chronic lymphedema left upper extremity. She was previously hospitalized from 09/23/16 to 09/29/16 with cellulitis to the LUE. Pt was treated with IV Vancomycin with significant improvement during that hospitalization and was discharged on po Levaquin. She presented back to the ED at [facility] on 11/07/16 with redness and swelling to the left upper extremity that began yesterday evening. She states she accidentally hit the dorsum of her left hand against a door frame yesterday morning and sustained a small open wound. Then yesterday evening around 6pm she noted significant redness and swelling in the left arm which has since spread across the left chest and down the left forearm. She has not had any fevers but has had some chills. Pts WBC count was 12.7 at admission. Pt was given IV Vancomycin in the ED and this was continued at admission. Review of Systems Constitutional: COMPLAINS OF: Chills, DENIES: Fever Eyes: DENIES: Vision loss Ears, nose, mouth, throat: DENIES: Hearing loss Respiratory: DENIES: Cough, Shortness of breath Cardiovascular: DENIES: Chest pain, Dyspnea on Exertion, Lower Extremity Edema Gastrointestinal: DENIES: Abdominal pain, Diarrhea, Nausea, Vomiting Genitourinary: DENIES: Urinary incontinence, Urgency Integumentary: COMPLAINS OF: Abnormal pigmentation Neurologic: DENIES: Headache Psychiatric: DENIES: Confusion, Depression Past Family Social History Past Medical History Atherosclerosis of the aorta Chronic ileostomy Recurrent DVT Morbid obesity Hx of left breast cancer Chronic lymphedema left upper extremity Hypertension Hypothyroidism Glaucoma History of pulmonary embolism Past Surgical History Appendectomy Cataract surgery Modified radical mastectomy on the left History of radiation therapy History of lipectomy Diverticulitis with perforation s/p sigmoid resection, left salpingo- oophorectomy with cystectomy and end colostomy placement on 07/30/15 History of breast cancer (s/p L mastectomy) Sigmoid resection, left salpingo-oophorectomy with cystectomy and end colostomy placement on 07/30/15 L mastectomy (also s/p radiation and chemotherapy) Tonsillectomy Reported Medications [place] (Hydrocodone-Acetaminophen) 5-325 mg Tab 1 Tab PO Q6H PRN Coumadin (Warfarin) 7.5 Mg Tab 7.5 Mg PO TUTHSA Take 1 tablet daily on Tuesday, and Tuesday Timolol Opth Drops 0.5 % Soln 1 Drop EACH EYE DAILY Levoxyl (Levothyroxine Sodium) 50 Mcg Tab 50 Mcg PO DAILY Metoprolol Tartrate 50 Mg Tab 50 Mg PO BID Warfarin 6 Mg Tab 6 Mg PO SUMOWEFR Take 1 tablet (6mg) daily in Tuesday,Tuesday,Tuesday and Tuesday Nifedipine ER 24 HR (Nifedipine) 30 Mg Tab 30 Mg PO DAILY Lorazepam 0.5 Mg Tab 0.5 Mg PO Q8HR PRN Lisinopril 20 Mg Tab 20 Mg PO BID Lasix (Furosemide) 20 Mg Tab 20 Mg PO DAILY K-Tab (Potassium Chloride) 20 Meq Tab 20 Meq PO DAILY Cymbalta DR (Duloxetine HCl) 20 Mg Capdr 20 Mg PO DAILY Allergies: Coded Allergies: Adhesives (Verified Allergy, Severe, Hives, 11/07/16) Aspirin (Verified Allergy, Severe, 11/07/16) Nonsteroidal Anti-Inflammatory Agts (Verified Allergy, Severe, 11/07/16) Penicillin (Verified Allergy, Intermediate, Hives, 11/07/16) Sulfa (Verified Allergy, Intermediate, Rash, 11/07/16) Family History Noncontributory Social History No tobacco since 1983 prior to that smoked less than pack per day for approximately 20 years Denies alcohol or illicit drug use Lives with her they've been for 44 years Previously worked for a [employer] in [place]. Has been in this area for 20 years. Physical Exam Vital Signs Vital Signs Date Time Temp Pulse Resp B/P Pulse Ox O2 Delivery O2 Flow Rate FiO2 11/08/16 08:00 99.0 74 17 132/59 92 11/08/16 04:00 97.5 79 20 137/59 96 11/08/16 02:22 79 11/08/16 02:05 78 95 11/08/16 02:00 97.9 81 20 158/71 92 11/08/16 01:12 81 16 148/60 97 11/07/16 21:23 98.2 87 18 187/84 96 Room Air Physical Exam GENERAL: This is a well-nourished, well-developed patient, in no apparent distress. HEENT: Atraumatic. Normocephalic. No temporal or scalp tenderness. No scleral icterus. Airway patent. NECK: Trachea midline, supple, nontender. CARDIO: Regular. RESP: CTA bilaterally. No wheezes, rales, or rhonchi. ABD: +BS, soft, non-tender, nondistended. Colostomy in left mid abdomen with brown stool noted. Midline wound bandages are c/d/i EXT: LUE with erythema from the wrist up to the axilla with streaking into the left chest NEURO: Awake and alert. Motor and sensory grossly within normal limits. Normal speech. Laboratory Laboratory Tests Test 11/07/16 11/07/16 22:50 23:00 White Blood Count 12.7 Red Blood Count 5.12 Hemoglobin 14.1 Hematocrit 43.4 Mean Corpuscular Volume 84.7 Mean Corpuscular Hemoglobin 27.5 Mean Corpuscular Hemoglobin 32.5 Concent Red Cell Distribution Width 17.6 Platelet Count 231 Mean Platelet Volume 8.6 Neutrophils (%) (Auto) 87.3 Lymphocytes (%) (Auto) 6.4 Monocytes (%) (Auto) 4.6 Eosinophils (%) (Auto) 1.2 Basophils (%) (Auto) 0.5 Neutrophils # (Auto) 11.1 Lymphocytes # (Auto) 0.8 Monocytes # (Auto) 0.6 Eosinophils # (Auto) 0.2 Basophils # (Auto) 0.1 CBC Comment DIFF FINAL Differential Comment Prothrombin Time 31.4 Prothromb Time International 2.7 Ratio Sodium Level 138 Potassium Level 4.1 Chloride Level 105 Carbon Dioxide Level 22.2 Anion Gap 11 Blood Urea Nitrogen 17 Creatinine 0.96 Estimat Glomerular Filtration 55 Rate Random Glucose 120 Calcium Level 9.5 Total Bilirubin 0.5 Aspartate Amino Transf 23 (AST/SGOT) Alanine Aminotransferase 21 (ALT/SGPT) Alkaline Phosphatase 95 Total Protein 7.8 Albumin 3.4 Lactic Acid Level 1.7 Result Diagram: 11/07/16224911/07/162249 Septic Shock Reassessment Heart: Regular rate and rhythm Lungs: Clear Skin: Warm Assessment and Plan Problem List: (1) Cellulitis of arm, left Status: Acute Plan: - Pt is an 86 y/o female with hx of left breast cancer s/p left mastectomy/chemo /xrt and chronic lymphedema left upper extremity. - She was previously hospitalized from 09/23/16 to 09/29/16 with cellulitis to the LUE. Pt was treated with IV Vancomycin with significant improvement during that hospitalization and was discharged on po Levaquin. - She presented back to the ED at [facility] on 11/07/16 with redness and swelling to the left upper extremity that began yesterday evening after she accidentally hit the dorsum of her left hand against a door frame yesterday morning and sustained a small open wound. Then yesterday evening around 6pm she noted significant redness and swelling in the left arm which has since spread across the left chest and down the left forearm. - Pts WBC count was 12.7 at admission. - Pt was given IV Vancomycin in the ED and this was continued at admission. - Monitor labs and vital signs - Supportive care - Pt is therapeutic on her Coumadin. (2) Cellulitis of chest wall Status: Acute Plan: - See above. (3) Lymphedema Status: Chronic Plan: - See above. (4) HTN (hypertension) Status: Chronic Plan: - Cont. home meds - Hold Lasix and potassium for now until we see how BP trends today (5) Hypothyroid Status: Chronic Plan: - Resume home meds (6) History of recurrent deep vein thrombosis (DVT) Status: Chronic Plan: - Cont. Coumadin - Monitor INR (7) H/O malignant neoplasm of breast Status: Chronic Assessment and Plan Patient examined. Assessment and plan formulated with Zoey MADRID I agree with the above. Left arm cellulitis. cont abx and observe. Physician Certification 2 Midnight Certification Type: Admission for Inpatient Services Order for Inpatient Services The services are ordered in accordance with Medicare regulations or non- Medicare payer requirements, as applicable. In the case of services not specified as inpatient-only, they are appropriately provided as inpatient services in accordance with the 2-midnight benchmark. Estimated LOS (days): 3 3 days is the estimated time the patient will need to remain in the hospital, assuming treatment plan goals are met and no additional complications. Post-Hospital Plan: Not yet determined Zoey Rodgers 31, 2017 09:45 Rhett Beckett MD Nov 08, 2016 12:59
[2016-11-08] MEDS: NIFEdipine 30 MG SUSTAINED RELEASE TAB PO SCH (10:26)
[2016-11-08] MEDS: LISINOPRIL 20 MG TAB PO SCH ×2 (10:26→20:36)
[2016-11-08] MEDS: METOPROLOL TARTRATE 50 MG TAB PO SCH ×2 (10:26→20:36)
[2016-11-08] MEDS ORDERED: VANCOMYCIN INJ 1,000 MG in SODIUM CHLOR 0.9% 250 ML INJ 250 ML IV SCH (11:00)
[2016-11-08] MEDS: DULoxetine HCl DR 20 MG CAP PO SCH (11:56)
[2016-11-08] MEDS: TIMOLOL MALEATE 0.5% OPHT SOLN 5 ML BTL EACH EYE SCH (11:56)
[2016-11-08] MEDS: WARFARIN SOD 6 MG TAB PO SCH (17:44)
[2016-11-08] MEDS: LORazepam 0.5 MG TAB PO PRN (22:24)
[2016-11-09] VITALS (7 sets, daily range): BP systolic 122–144; BP diastolic 53–83; PULSE 63–69; RESP 16–22; TEMP 96.4–98.1; O2SAT 93–96
[2016-11-09] MEDS: LEVOTHYROXINE SODIUM 50 MCG TAB PO SCH (05:38)
[2016-11-09] MEDS: ACETAMINOPHEN/HYDROcodone 325 MG/5 MG TAB PO PRN ×2 (05:41→21:04)
[2016-11-09 06:13] LABS: INTERNATIONAL NORMALIZED RATIO 3.1 RATIO; PROTHROMBIN TIME - PATIENT 35.6 SEC (9.8-11.6)
[2016-11-09 06:22] LABS: AUTOMATED NEUTROPHIL # 6.5 TH/MM3 (1.8-7.7); BASOPHIL % 0.5 % (0.0-2.0); EOSINOPHIL # 0.3 TH/MM3 (0-0.4); EOSINOPHIL % 3.7 % (0.0-4.0); HEMATOCRIT 36.5 % (35.0-46.0); HEMO FLAGS DIFF FINAL; LYMPH % 14.3 % (9.0-44.0); LYMPHOCYTE # 1.3 TH/MM3 (1.0-4.8); MEAN CELL VOLUME 83.6 FL (80.0-100.0); MEAN CORPUSCULAR HEMOGLOBIN 27.7 PG (27.0-34.0); MEAN CORPUSCULAR HGB CONC 33.1 % (32.0-36.0); MONO % 7.3 % (0.0-8.0); NEUT % 74.2 % (16.0-70.0); PLATELET COUNT 186 TH/MM3 (150-450); RED BLOOD COUNT 4.37 MIL/MM3 (4.00-5.30); RED CELL DISTRIBUTION WIDTH 17.8 % (11.6-17.2); WHITE BLOOD COUNT 8.8 TH/MM3 (4.0-11.0)
[2016-11-09 06:32] LABS: BICARBONATE 22.6 MEQ/L (21.0-32.0); POTASSIUM 3.8 MEQ/L (3.5-5.1)
[2016-11-09] MEDS: LISINOPRIL 20 MG TAB PO SCH ×2 (08:44→21:06)
[2016-11-09] MEDS: DULoxetine HCl DR 20 MG CAP PO SCH (08:44)
[2016-11-09] MEDS: METOPROLOL TARTRATE 50 MG TAB PO SCH ×2 (08:44→21:06)
[2016-11-09] MEDS: NIFEdipine 30 MG SUSTAINED RELEASE TAB PO SCH (08:44)
[2016-11-09] MEDS: SODIUM CHLORIDE 0.9% FLUSH 10 ML FLUSH IV FLUSH SCH ×2 (08:45→21:00)
[2016-11-09] MEDS: TIMOLOL MALEATE 0.5% OPHT SOLN 5 ML BTL EACH EYE SCH (08:48)
[2016-11-09] MEDS ORDERED: VANCOMYCIN INJ 1,250 MG in SODIUM CHLOR 0.9% 250 ML INJ 250 ML IV SCH (11:00)
--- NOTE | 2016-11-09 11:02 | HHI.PR ---
Subjective Remarks No new complaints Pt has been afebrile Denies any chills. Feels that the redness and swelling is improving slowly Objective Vitals Vital Signs Date Time Temp Pulse Resp B/P Pulse Ox O2 Delivery O2 Flow Rate FiO2 11/09/16 10:31 95 Nasal Cannula 2.00 11/09/16 08:00 96.7 69 17 144/53 95 11/09/16 08:00 69 11/09/16 04:20 94 Nasal Cannula 2.00 11/09/16 04:00 96.8 68 22 139/64 95 11/09/16 00:00 98.1 69 22 130/57 93 11/08/16 22:00 70 11/08/16 20:00 98.0 70 22 117/46 95 11/08/16 16:00 96.5 65 18 115/56 92 11/08/16 12:00 96.9 69 18 122/57 95 11/08/16 11/08/16 11/09/16 15:00 23:00 07:00 Intake Total 960 ml 480 ml 240 ml Output Total 200 ml 350 ml 200 ml Balance 760 ml 130 ml 40 ml Intake Oral 960 ml 480 ml 240 ml IV Total 0 ml 0 ml Output Urine Total 200 ml 350 ml 200 ml # Bowel Movements 2 1 0 Result Diagram: 11/09/16 0540 11/09/16 0540 Other Results Laboratory Tests Test 11/07/16 11/07/16 11/09/16 22:50 23:00 05:40 White Blood Count 12.7 TH/MM3 8.8 TH/MM3 Red Blood Count 5.12 MIL/MM3 4.37 MIL/MM3 Hemoglobin 14.1 GM/DL 12.1 GM/DL Hematocrit 43.4 % 36.5 % Mean Corpuscular Volume 84.7 FL 83.6 FL Mean Corpuscular Hemoglobin 27.5 PG 27.7 PG Mean Corpuscular Hemoglobin 32.5 % 33.1 % Concent Red Cell Distribution Width 17.6 % 17.8 % Platelet Count 231 TH/MM3 186 TH/MM3 Mean Platelet Volume 8.6 FL 8.5 FL Neutrophils (%) (Auto) 87.3 % 74.2 % Lymphocytes (%) (Auto) 6.4 % 14.3 % Monocytes (%) (Auto) 4.6 % 7.3 % Eosinophils (%) (Auto) 1.2 % 3.7 % Basophils (%) (Auto) 0.5 % 0.5 % Neutrophils # (Auto) 11.1 TH/MM3 6.5 TH/MM3 Lymphocytes # (Auto) 0.8 TH/MM3 1.3 TH/MM3 Monocytes # (Auto) 0.6 TH/MM3 0.6 TH/MM3 Eosinophils # (Auto) 0.2 TH/MM3 0.3 TH/MM3 Basophils # (Auto) 0.1 TH/MM3 0.0 TH/MM3 CBC Comment DIFF FINAL DIFF FINAL Differential Comment Prothrombin Time 31.4 SEC 35.6 SEC Prothromb Time International 2.7 RATIO 3.1 RATIO Ratio Sodium Level 138 MEQ/L 138 MEQ/L Potassium Level 4.1 MEQ/L 3.8 MEQ/L Chloride Level 105 MEQ/L 107 MEQ/L Carbon Dioxide Level 22.2 MEQ/L 22.6 MEQ/L Anion Gap 11 MEQ/L 8 MEQ/L Blood Urea Nitrogen 17 MG/DL 10 MG/DL Creatinine 0.96 MG/DL 0.48 MG/DL Estimat Glomerular Filtration 55 ML/MIN 123 ML/MIN Rate Random Glucose 120 MG/DL 99 MG/DL Calcium Level 9.5 MG/DL 9.3 MG/DL Total Bilirubin 0.5 MG/DL Aspartate Amino Transf 23 U/L (AST/SGOT) Alanine Aminotransferase 21 U/L (ALT/SGPT) Alkaline Phosphatase 95 U/L Total Protein 7.8 GM/DL Albumin 3.4 GM/DL Lactic Acid Level 1.7 mmol/L Objective Remarks General: NAD, AAOx3 Chest: CTA Cardiac: Regular Abd: +BS, soft ND/NT Ext: LUE with erythema and swelling (slightly improved), still some slight streaking across the left chest A/P Problem List: (1) Cellulitis of arm, left Status: Acute Plan: - Pt is an 86 y/o female with hx of left breast cancer s/p left mastectomy/chemo /xrt and chronic lymphedema left upper extremity. - She was previously hospitalized from 09/23/16 to 09/29/16 with cellulitis to the LUE. Pt was treated with IV Vancomycin with significant improvement during that hospitalization and was discharged on po Levaquin. - She presented back to the ED at [facility] [place] on 11/07/16 with redness and swelling to the left upper extremity that began yesterday evening after she accidentally hit the dorsum of her left hand against a door frame yesterday morning and sustained a small open wound. Then yesterday evening around 6pm she noted significant redness and swelling in the left arm which has since spread across the left chest and down the left forearm. - Pts WBC count was 12.7 at admission. - Pt was given IV Vancomycin in the ED and this was continued at admission with pharmacy dosing. - WBC count improved today to 8.8 - Monitor labs and vital signs - Supportive care (2) Cellulitis of chest wall Status: Acute Plan: - See above. (3) Lymphedema Status: Chronic Plan: - See above. (4) HTN (hypertension) Status: Chronic Plan: - Cont. home meds - We will resume Lasix and potassium today - BMP in AM (5) Hypothyroid Status: Chronic Plan: - Resume home meds (6) History of recurrent deep vein thrombosis (DVT) Status: Chronic Plan: - INR today is supra-therapeutic at 3.1 - Hold COumadin dose today - Repeat INR in AM (7) H/O malignant neoplasm of breast Status: Chronic Assessment and Plan Patient examined. Assessment and plan formulated with Zoey Rodgers PA-C. I agree with the above. Zoey Rodgers Nov 09, 2016 11:01 Kale Kaur DO Nov 10, 2016 01:26
[2016-11-09] MEDS: FUROSEMIDE 20 MG TAB PO SCH (13:26)
[2016-11-09] MEDS: POTASSIUM CHLORIDE 20 MEQ CONTROLLED RELEASE TAB PO SCH (13:26)
--- NOTE | 2016-11-09 17:32 | PD.WCN.NOT ---
Wound Consult Description: Mid Abdomen wound management Communicated with: GIOVANA Eli Call placed to Doctor Natasha for orders Recommendation: Please cleanse wounds to medial abdominal area with normal saline and apply patient's home medication Benzoin Tincture over periwound and scabs. Cover entire area with oil emulsion gauze. Secure dressing with ABD pad and paper tape. Please apply skin prep before applying paper tape to skin. Change dressing every 2 days or PRN if saturated or dislodged. Additional Information: Patient seen on for evaluation of mid abdomen wound management. Patient sees out patient [facility] wound care physician. Patient has appropriate orders from wound care clinic, and brought her home medication Benzoin Tincture. Wound assessment completed with the assistance of Rubi AKHTAR .Wounds to medial abdomen are open to air. Three open wounds assessed. Largest wound measures ~2cm x ~2cm x ~0.1cm. All wounds present with 100% pink tissue.Wounds are not actively draining and are without foul odor. Dry intact scabs noted to lower medial abdomen. Periwound noted with dry scaly skin. Cleansed entire medial abdomen with normal saline and pat dry.Applied Benzoin Tincture over abdominal wounds, periwound, and intact scabs and covered area with oil emulsion gauze. Covered with ABD pad and paper tape. Applied skin prep before applying paper tape to skin. Reema Degroot CRN Nov 09, 2016 17:32
[2016-11-09] MEDS: LORazepam 0.5 MG TAB PO PRN (21:03)
[2016-11-10] VITALS (7 sets, daily range): BP systolic 128–161; BP diastolic 58–77; PULSE 64–79; RESP 16–24; TEMP 96.3–97.9; O2SAT 91–96
[2016-11-10] MEDS: LEVOTHYROXINE SODIUM 50 MCG TAB PO SCH (05:23)
[2016-11-10 05:59] LABS: INTERNATIONAL NORMALIZED RATIO 2.2 RATIO; PROTHROMBIN TIME - PATIENT 24.8 SEC (9.8-11.6)
[2016-11-10 06:13] LABS: BICARBONATE 25.4 MEQ/L (21.0-32.0); POTASSIUM 3.8 MEQ/L (3.5-5.1)
[2016-11-10] MEDS: ACETAMINOPHEN/HYDROcodone 325 MG/5 MG TAB PO PRN ×2 (08:25→20:01)
[2016-11-10] MEDS: NIFEdipine 30 MG SUSTAINED RELEASE TAB PO SCH (08:25)
[2016-11-10] MEDS: POTASSIUM CHLORIDE 20 MEQ CONTROLLED RELEASE TAB PO SCH (08:25)
[2016-11-10] MEDS: LISINOPRIL 20 MG TAB PO SCH ×2 (08:25→20:01)
[2016-11-10] MEDS: VANCOMYCIN INJ 1,500 MG in SODIUM CHLORID 0.9% 500 ML INJ 500 ML IV SCH (08:25)
[2016-11-10] MEDS: SODIUM CHLORIDE 0.9% FLUSH 10 ML FLUSH IV FLUSH SCH ×2 (08:26→20:02)
[2016-11-10] MEDS: METOPROLOL TARTRATE 50 MG TAB PO SCH ×2 (08:26→20:01)
[2016-11-10] MEDS: FUROSEMIDE 20 MG TAB PO SCH (08:26)
[2016-11-10] MEDS: DULoxetine HCl DR 20 MG CAP PO SCH (08:30)
[2016-11-10] MEDS: TIMOLOL MALEATE 0.5% OPHT SOLN 5 ML BTL EACH EYE SCH (09:00)
--- NOTE | 2016-11-10 15:04 | HHI.PR ---
Subjective Remarks Pt is feeling better. The erythema and swelling is improving. No further streaking across the chest Objective Vitals Vital Signs Date Time Temp Pulse Resp B/P Pulse Ox O2 Delivery O2 Flow Rate FiO2 11/10/16 12:00 97.4 73 16 161/62 95 11/10/16 08:00 66 11/10/16 08:00 97.0 66 16 154/67 94 11/10/16 08:00 93 Room Air 11/10/16 04:00 96.3 64 22 132/58 96 11/10/16 00:00 97.7 66 24 128/58 95 11/09/16 20:00 97.6 69 22 124/54 94 11/09/16 16:00 96.4 63 16 139/64 96 11/09/16 11/09/16 11/10/16 14:59 22:59 06:59 Intake Total 610 ml 240 ml 240 ml Output Total 302 ml 800 ml 300 ml Balance 308 ml -560 ml -60 ml Intake Oral 360 ml 240 ml 240 ml IV Total 250 ml Output Urine Total 300 ml 800 ml 300 ml Stool Total 2 ml # Bowel Movements 0 1 Result Diagram: 11/09/16 0540 11/10/16 0433 Other Results Laboratory Tests Test 11/09/16 11/10/16 05:40 04:33 White Blood Count 8.8 TH/MM3 Red Blood Count 4.37 MIL/MM3 Hemoglobin 12.1 GM/DL Hematocrit 36.5 % Mean Corpuscular Volume 83.6 FL Mean Corpuscular Hemoglobin 27.7 PG Mean Corpuscular Hemoglobin 33.1 % Concent Red Cell Distribution Width 17.8 % Platelet Count 186 TH/MM3 Mean Platelet Volume 8.5 FL Neutrophils (%) (Auto) 74.2 % Lymphocytes (%) (Auto) 14.3 % Monocytes (%) (Auto) 7.3 % Eosinophils (%) (Auto) 3.7 % Basophils (%) (Auto) 0.5 % Neutrophils # (Auto) 6.5 TH/MM3 Lymphocytes # (Auto) 1.3 TH/MM3 Monocytes # (Auto) 0.6 TH/MM3 Eosinophils # (Auto) 0.3 TH/MM3 Basophils # (Auto) 0.0 TH/MM3 CBC Comment DIFF FINAL Differential Comment Prothrombin Time 35.6 SEC 24.8 SEC Prothromb Time International 3.1 RATIO 2.2 RATIO Ratio Sodium Level 138 MEQ/L 142 MEQ/L Potassium Level 3.8 MEQ/L 3.8 MEQ/L Chloride Level 107 MEQ/L 109 MEQ/L Carbon Dioxide Level 22.6 MEQ/L 25.4 MEQ/L Anion Gap 8 MEQ/L 8 MEQ/L Blood Urea Nitrogen 10 MG/DL 9 MG/DL Creatinine 0.48 MG/DL 0.50 MG/DL Estimat Glomerular Filtration 123 ML/MIN 117 ML/MIN Rate Random Glucose 99 MG/DL 85 MG/DL Calcium Level 9.3 MG/DL 9.1 MG/DL Objective Remarks General: NAD, AAOx3 Chest: CTA Cardiac: Regular Abd: +BS, soft ND/NT Ext: LUE with erythema and swelling (improving), no further streaking across the left chest A/P Problem List: (1) Cellulitis of arm, left Status: Acute Plan: - Pt is an 86 y/o female with hx of left breast cancer s/p left mastectomy/chemo /xrt and chronic lymphedema left upper extremity. - She was previously hospitalized from 09/23/16 to 09/29/16 with cellulitis to the LUE. Pt was treated with IV Vancomycin with significant improvement during that hospitalization and was discharged on po Levaquin. - She presented back to the ED at [facility] on 11/07/16 with redness and swelling to the left upper extremity that began yesterday evening after she accidentally hit the dorsum of her left hand against a door frame yesterday morning and sustained a small open wound. Then yesterday evening around 6pm she noted significant redness and swelling in the left arm which has since spread across the left chest and down the left forearm. - Pts WBC count was 12.7 at admission. - Cont. IV Vancomycin with pharmacy dosing. - WBC count improved to 8.8 on 11/09 - Monitor labs and vital signs - Supportive care (2) Cellulitis of chest wall Status: Acute Plan: - See above. (3) Lymphedema Status: Chronic Plan: - See above. (4) HTN (hypertension) Status: Chronic Plan: - Cont. home meds - Lasix and potassium resumed on 11/09 - BMP in AM (5) Hypothyroid Status: Chronic Plan: - Cont. home meds (6) History of recurrent deep vein thrombosis (DVT) Status: Chronic Plan: - INR is therapeutic at 2.2 today - Resume Coumadin dose today - Repeat INR in AM (7) H/O malignant neoplasm of breast Status: Chronic Zoey Rodgers Nov 10, 2016 15:04 Kale Kaur DO Nov 13, 2016 15:01
[2016-11-10 15:13] LABS: BICARBONATE 25.5 MEQ/L (21.0-32.0); POTASSIUM 4.2 MEQ/L (3.5-5.1)
[2016-11-10] MEDS: WARFARIN SOD 6 MG TAB PO SCH (16:58)
[2016-11-10] MEDS: LORazepam 0.5 MG TAB PO PRN (20:01)
[2016-11-11] VITALS (8 sets, daily range): BP systolic 124–176; BP diastolic 67–74; PULSE 66–77; RESP 16–20; TEMP 95.8–97.9; O2SAT 92–97
[2016-11-11] MEDS: VANCOMYCIN INJ 1,500 MG in SODIUM CHLORID 0.9% 500 ML INJ 500 ML IV SCH ×2 (00:12→19:30)
[2016-11-11] MEDS: LEVOTHYROXINE SODIUM 50 MCG TAB PO SCH (05:12)
[2016-11-11 07:09] LABS: INTERNATIONAL NORMALIZED RATIO 1.9 RATIO; PROTHROMBIN TIME - PATIENT 21.7 SEC (9.8-11.6)
[2016-11-11 07:29] LABS: BICARBONATE 25.3 MEQ/L (21.0-32.0); POTASSIUM 3.6 MEQ/L (3.5-5.1)
[2016-11-11] MEDS: POTASSIUM CHLORIDE 20 MEQ CONTROLLED RELEASE TAB PO SCH (09:01)
[2016-11-11] MEDS: DULoxetine HCl DR 20 MG CAP PO SCH (09:01)
[2016-11-11] MEDS: FUROSEMIDE 20 MG TAB PO SCH (09:01)
[2016-11-11] MEDS: NIFEdipine 30 MG SUSTAINED RELEASE TAB PO SCH (09:01)
[2016-11-11] MEDS: LISINOPRIL 20 MG TAB PO SCH ×2 (09:01→21:48)
[2016-11-11] MEDS: METOPROLOL TARTRATE 50 MG TAB PO SCH ×2 (09:01→21:48)
[2016-11-11] MEDS: SODIUM CHLORIDE 0.9% FLUSH 10 ML FLUSH IV FLUSH SCH ×2 (09:02→21:52)
[2016-11-11] MEDS: TIMOLOL MALEATE 0.5% OPHT SOLN 5 ML BTL EACH EYE SCH (09:06)
[2016-11-11] MEDS: NYSTATIN 100,000 U/GM PWD 15 GM BTL TOPICAL SCH ×3 (12:07→17:54)
--- NOTE | 2016-11-11 13:06 | HHI.PR ---
Subjective Remarks Pt reports that they were unable to wean her off the O2 today She feels somewhat SOB and is not typically on O2 at home. Objective Vitals Vital Signs Date Time Temp Pulse Resp B/P Pulse Ox O2 Delivery O2 Flow Rate FiO2 11/11/16 12:00 97.6 67 20 166/74 95 11/11/16 09:00 Nasal Cannula 2.00 11/11/16 08:00 97.3 67 16 146/67 94 11/11/16 04:00 97.7 66 18 124/72 93 11/11/16 00:00 97.9 77 18 163/70 92 11/10/16 20:00 97.3 79 18 159/59 91 11/10/16 17:58 Nasal Cannula 2.00 11/10/16 16:00 97.9 72 17 138/77 95 11/10/16 13:20 96 Nasal Cannula 2.00 11/10/16 11/10/16 11/11/16 15:00 23:00 07:00 Intake Total 340 ml 500 ml Output Total 900 ml 300 ml Balance 340 ml -900 ml 200 ml Intake Oral 340 ml IV Total 500 ml Output Urine Total 900 ml 300 ml # Voids 2 2 # Bowel Movements 1 Result Diagram: 11/09/16 0540 11/11/16 0626 Other Results Laboratory Tests Test 11/10/16 11/10/16 11/11/16 04:33 14:30 06:26 Prothrombin Time 24.8 SEC 21.7 SEC Prothromb Time International 2.2 RATIO 1.9 RATIO Ratio Sodium Level 142 MEQ/L 142 MEQ/L 142 MEQ/L Potassium Level 3.8 MEQ/L 4.2 MEQ/L 3.6 MEQ/L Chloride Level 109 MEQ/L 111 MEQ/L 110 MEQ/L Carbon Dioxide Level 25.4 MEQ/L 25.5 MEQ/L 25.3 MEQ/L Anion Gap 8 MEQ/L 6 MEQ/L 7 MEQ/L Blood Urea Nitrogen 9 MG/DL 11 MG/DL 8 MG/DL Creatinine 0.50 MG/DL 0.59 MG/DL 0.43 MG/DL Estimat Glomerular Filtration 117 ML/MIN 97 ML/MIN 140 ML/MIN Rate Random Glucose 85 MG/DL 100 MG/DL 115 MG/DL Calcium Level 9.1 MG/DL 9.0 MG/DL 8.9 MG/DL Objective Remarks General: NAD, AAOx3 Chest: CTA Cardiac: Regular Abd: +BS, soft ND/NT Ext: LUE with erythema resolving. A/P Problem List: (1) Cellulitis of arm, left Status: Acute Plan: - Pt is an 86 y/o female with hx of left breast cancer s/p left mastectomy/chemo /xrt and chronic lymphedema left upper extremity. - She was previously hospitalized from 09/23/16 to 09/29/16 with cellulitis to the LUE. Pt was treated with IV Vancomycin with significant improvement during that hospitalization and was discharged on po Levaquin. - She presented back [place] [facility]16 with redness and swelling to the left upper extremity that began the evening of admission after she accidentally hit the dorsum of her left hand against a door frame yesterday morning and sustained a small open wound. Then yesterday evening around 6pm she noted significant redness and swelling in the left arm which has since spread across the left chest and down the left forearm. - Pts WBC count was 12.7 at admission. - WBC count improved to 8.8 on 11/09 - Pt has been on IV Vancomycin with pharmacy dosing since 11/07 and pt has been improving nicely over the last 2 days. - We will change to po Levaquin in the morning and anticipate likely discharge home tomorrow afternoon. - Monitor labs and vital signs - Supportive care (2) Cellulitis of chest wall Status: Acute Plan: - See above. (3) Lymphedema Status: Chronic Plan: - See above. (4) HTN (hypertension) Status: Chronic Plan: - Cont. home meds - Lasix and potassium resumed on 11/09 - BMP in AM (5) Hypothyroid Status: Chronic Plan: - Cont. home meds (6) History of recurrent deep vein thrombosis (DVT) Status: Chronic Plan: - INR is therapeutic at 1.9 today - Coumadin dose resumed on 11/10 - Repeat INR in AM (7) H/O malignant neoplasm of breast Status: Chronic Zoey Rodgers Nov 11, 2016 13:06 Kale Kaur DO Nov 13, 2016 15:01
--- NOTE | 2016-11-11 14:32 | RADRPT ---
EXAM DATE/TIME: 11/11/2016 13:57 [place] COMPARISON: CHEST SINGLE AP, September 28, 2016, 12:29. INDICATIONS : Short of breath. MEDICAL HISTORY : Cardiovascular disease. Hypertension SURGICAL HISTORY : Mastectomy, left. ENCOUNTER: Initial ACUITY: 1 day PAIN SCORE: 0/10 LOCATION: Bilateral chest FINDINGS: A single view of the chest demonstrates cardiomegaly. Small left pleural effusion. Right lung clear. No pneumothorax. Minimal basal atelectasis. CONCLUSION: 1. Mild basal atelectasis. Small effusions, left greater than right. Washington Vasquez MD on November 11, 2016 at 14:30 Board Certified Radiologist. This report was verified electronically.
[2016-11-11] MEDS: WARFARIN SOD 7.5 MG TAB PO SCH (16:26)
[2016-11-11] MEDS ORDERED: PHARMACY ORDERED LAB ONE (17:45)
[2016-11-11] MEDS: ACETAMINOPHEN/HYDROcodone 325 MG/5 MG TAB PO PRN (21:51)
[2016-11-11] MEDS: LORazepam 0.5 MG TAB PO PRN (23:01)
[2016-11-12] VITALS: BP 130/77; PULSE 68; RESP 18; TEMP 97.6; O2SAT 94
[2016-11-12] MEDS: LEVOTHYROXINE SODIUM 50 MCG TAB PO SCH (05:19)
[2016-11-12 06:02] LABS: INTERNATIONAL NORMALIZED RATIO 1.9 RATIO; PROTHROMBIN TIME - PATIENT 22.1 SEC (9.8-11.6)
[2016-11-12 06:07] LABS: BICARBONATE 27.4 MEQ/L (21.0-32.0); POTASSIUM 3.4 MEQ/L (3.5-5.1)
[2016-11-12 08:00] VITALS: BP 162/69; PULSE 72; RESP 17; TEMP 96; O2SAT 94
[2016-11-12] MEDS: FUROSEMIDE 20 MG TAB PO SCH (08:31)
[2016-11-12] MEDS: LISINOPRIL 20 MG TAB PO SCH ×2 (08:31→21:05)
[2016-11-12] MEDS: NIFEdipine 30 MG SUSTAINED RELEASE TAB PO SCH (08:31)
[2016-11-12] MEDS: DULoxetine HCl DR 20 MG CAP PO SCH (08:31)
[2016-11-12] MEDS: POTASSIUM CHLORIDE 20 MEQ CONTROLLED RELEASE TAB PO SCH (08:31)
[2016-11-12] MEDS: METOPROLOL TARTRATE 50 MG TAB PO SCH ×2 (08:31→21:04)
[2016-11-12] MEDS: SODIUM CHLORIDE 0.9% FLUSH 10 ML FLUSH IV FLUSH SCH ×2 (08:32→21:00)
[2016-11-12] MEDS: TIMOLOL MALEATE 0.5% OPHT SOLN 5 ML BTL EACH EYE SCH (08:32)
[2016-11-12] MEDS: NYSTATIN 100,000 U/GM PWD 15 GM BTL TOPICAL SCH ×3 (09:49→16:34)
[2016-11-12] MEDS: LEVOFLOXACIN 500 MG TAB PO SCH (10:02)
--- NOTE | 2016-11-12 10:34 | HHI.PR ---
Subjective Remarks Pt with some redness of the right forearm from previous IV site, likely some thrombophlebitis Pt concerned about being on the oral Levaquin because it gave her a lot of diarrhea last time. She was tested for C. diff as an outpt when the previous diarrhea occurred which was negative Pt still on supplemental O2, down to 1L She did not sleep well. Has not been using the IS yet Objective Vitals Vital Signs Date Time Temp Pulse Resp B/P Pulse Ox O2 Delivery O2 Flow Rate FiO2 11/12/16 08:30 Nasal Cannula 2.00 11/12/16 08:00 96.0 72 17 162/69 94 11/12/16 00:34 Nasal Cannula 2.00 11/12/16 00:00 97.6 68 18 130/77 94 11/11/16 21:22 96 Nasal Cannula 2.00 11/11/16 20:00 95.8 72 18 176/74 93 11/11/16 16:00 97.9 69 17 168/74 95 11/11/16 13:43 97 Nasal Cannula 2.00 11/11/16 12:00 97.6 67 20 166/74 95 11/11/16 11/11/16 11/12/16 14:59 22:59 06:59 Intake Total 342 ml 240 ml 500 ml Output Total 800 ml Balance -458 ml 240 ml 500 ml Intake Oral 340 ml 240 ml IV Total 2 ml 500 ml Output Urine Total 800 ml # Voids 4 3 # Bowel Movements 0 Result Diagram: 11/09/16 0540 11/12/16 0500 Other Results Laboratory Tests Test 11/10/16 11/11/16 11/11/16 11/12/16 14:30 06:26 17:47 05:00 Sodium Level 142 MEQ/L 142 MEQ/L 140 MEQ/L Potassium Level 4.2 MEQ/L 3.6 MEQ/L 3.4 MEQ/L Chloride Level 111 MEQ/L 110 MEQ/L 106 MEQ/L Carbon Dioxide Level 25.5 MEQ/L 25.3 MEQ/L 27.4 MEQ/L Anion Gap 6 MEQ/L 7 MEQ/L 7 MEQ/L Blood Urea Nitrogen 11 MG/DL 8 MG/DL 8 MG/DL Creatinine 0.59 MG/DL 0.43 MG/DL 0.46 MG/DL Estimat Glomerular Filtration 97 ML/MIN 140 ML/MIN 129 ML/MIN Rate Random Glucose 100 MG/DL 115 MG/DL 89 MG/DL Calcium Level 9.0 MG/DL 8.9 MG/DL 9.2 MG/DL Prothrombin Time 21.7 SEC 22.1 SEC Prothromb Time International 1.9 RATIO 1.9 RATIO Ratio Vancomycin Level Trough 11.5 MCG/ML Imaging Last Impressions Chest X-Ray 11/11/16 0000 Signed Impressions: Service Date/Time: November 13:57 - CONCLUSION: 1. Mild basal atelectasis. Small effusions, left greater than right. Washington Vasquez MD Objective Remarks General: NAD, AAOx3 Chest: CTA Cardiac: Regular Abd: +BS, soft ND/NT Ext: LUE with erythema resolving. Mild area of erythema and palpable vein with tenderness ont he right forearm where previous IV was A/P Problem List: (1) Cellulitis of arm, left Status: Acute Plan: - Pt is an 86 y/o female with hx of left breast cancer s/p left mastectomy/chemo /xrt and chronic lymphedema left upper extremity. - She was previously hospitalized from 09/23/16 to 09/29/16 with cellulitis to the LUE. Pt was treated with IV Vancomycin with significant improvement during that hospitalization and was discharged on po Levaquin. - She presented back to the ED at [facility] [place] on 11/07/16 with redness and swelling to the left upper extremity that began the evening of admission after she accidentally hit the dorsum of her left hand against a door frame yesterday morning and sustained a small open wound. Then yesterday evening around 6pm she noted significant redness and swelling in the left arm which has since spread across the left chest and down the left forearm. - Pts WBC count was 12.7 at admission. - WBC count improved to 8.8 on 11/09 - Pt has been on IV Vancomycin with pharmacy dosing since 11/07 and pt has been improving nicely. Vancomycin changed to po Levaquin on 11/12 but she is concerned about diarrhea. Pt had profuse diarrhea with while on Levaquin last time. She was checked at that time for C. diff which was negative. - Pt with some thrombophlebitis on the right forearm today - Warm compress to right forearm - Remove IV - Pt with some atelectasis on the CXR, encouraged IS use and ambulation OOB, discussed with the nurse as well. - Monitor labs and vital signs - Supportive care (2) Cellulitis of chest wall Status: Acute Plan: - See above. (3) Lymphedema Status: Chronic Plan: - See above. (4) HTN (hypertension) Status: Chronic Plan: - Cont. home meds - Lasix and potassium resumed on 11/09 - BMP in AM (5) Hypothyroid Status: Chronic Plan: - Cont. home meds (6) History of recurrent deep vein thrombosis (DVT) Status: Chronic Plan: - INR is therapeutic at 1.9 today - Coumadin dose resumed on 11/10 - Repeat INR in AM (7) H/O malignant neoplasm of breast Status: Chronic Zoey Rodgers Nov 12, 2016 10:34 Kale Kaur DO Nov 13, 2016 15:01
[2016-11-12 12:00] VITALS: BP 165/119; PULSE 69; RESP 17; TEMP 96.4; O2SAT 90
--- NOTE | 2016-11-12 14:40 | RADRPT ---
EXAM DATE/TIME: 11/12/2016 14:24 [place] COMPARISON: ABDOMEN KUB ONLY, July 29, 2015, 11:10. INDICATIONS : Abdominal distention. MEDICAL HISTORY : Cardiovascular disease. Hypertension SURGICAL HISTORY : Colostomy. ACUITY: 2 weeks PAIN SCORE: 0/10 LOCATION: Abdomen FINDINGS: Gallstones are present. There is no free air or obstruction. Bowel gas pattern is unremarkable. De generative changes are present lumbar spine. CONCLUSION: Calcified gallstone otherwise negative. Aristides Harman MD FACR on November 12, 2016 at 14:38 Board Certified Radiologist. This report was verified electronically.
[2016-11-12 16:00] VITALS: BP 158/69; PULSE 71; RESP 17; TEMP 95.7; O2SAT 92
[2016-11-12] MEDS ORDERED: VANCOMYCIN INJ 1,500 MG in SODIUM CHLORID 0.9% 500 ML INJ 500 ML IV SCH (16:00)
[2016-11-12] MEDS: WARFARIN SOD 6 MG TAB PO SCH (16:33)
[2016-11-12 20:00] VITALS: BP 170/73; PULSE 71; RESP 16; TEMP 97.5; O2SAT 96
[2016-11-12] MEDS: LORazepam 0.5 MG TAB PO PRN (21:05)
[2016-11-12] MEDS: ACETAMINOPHEN/HYDROcodone 325 MG/5 MG TAB PO PRN (21:06)
[2016-11-13] VITALS: BP 131/58; PULSE 63; RESP 16; TEMP 96.8; O2SAT 93
[2016-11-13] MEDS: LEVOTHYROXINE SODIUM 50 MCG TAB PO SCH (05:33)
[2016-11-13 06:25] LABS: INTERNATIONAL NORMALIZED RATIO 2.2 RATIO; PROTHROMBIN TIME - PATIENT 24.9 SEC (9.8-11.6)
[2016-11-13 08:00] VITALS: BP 152/64; PULSE 68; RESP 16; TEMP 96.5; O2SAT 93
[2016-11-13] MEDS: LISINOPRIL 20 MG TAB PO SCH (08:50)
[2016-11-13] MEDS: ACETAMINOPHEN/HYDROcodone 325 MG/5 MG TAB PO PRN (08:50)
[2016-11-13] MEDS: LEVOFLOXACIN 500 MG TAB PO SCH (08:50)
[2016-11-13] MEDS: DULoxetine HCl DR 20 MG CAP PO SCH (08:50)
[2016-11-13] MEDS: FUROSEMIDE 20 MG TAB PO SCH (08:51)
[2016-11-13] MEDS: SODIUM CHLORIDE 0.9% FLUSH 10 ML FLUSH IV FLUSH SCH (08:51)
[2016-11-13] MEDS: POTASSIUM CHLORIDE 20 MEQ CONTROLLED RELEASE TAB PO SCH (08:51)
[2016-11-13] MEDS: METOPROLOL TARTRATE 50 MG TAB PO SCH (08:51)
[2016-11-13] MEDS: NIFEdipine 30 MG SUSTAINED RELEASE TAB PO SCH (08:51)
[2016-11-13] MEDS: NYSTATIN 100,000 U/GM PWD 15 GM BTL TOPICAL SCH ×2 (08:52→13:00)
[2016-11-13] MEDS: TIMOLOL MALEATE 0.5% OPHT SOLN 5 ML BTL EACH EYE SCH (09:00)
[2016-11-13] MEDS ORDERED: PHARMACY ORDERED LAB ONE (09:45)
[2016-11-13 12:00] VITALS: BP 159/69; PULSE 64; RESP 17; TEMP 97.3; O2SAT 93
--- NOTE | 2016-11-13 15:05 | HHI.DS ---
Discharge Summary Admission Date Nov 10, 2016 at 12:12 Discharge Date: Nov 13, 2016 Admitting Diagnosis left arm chest wall cellulitis. (1) Cellulitis of arm, left Diagnosis: Principal (2) Cellulitis of chest wall Diagnosis: Principal (3) Lymphedema Diagnosis: Secondary (4) HTN (hypertension) Diagnosis: Secondary (5) Hypothyroid Diagnosis: Secondary (6) History of recurrent deep vein thrombosis (DVT) Diagnosis: Secondary (7) H/O malignant neoplasm of breast Diagnosis: Secondary Brief History Mrs. Baires is a pleasant 86 y/o female with hx of left breast cancer s/p left mastectomy/chemo/xrt and chronic lymphedema left upper extremity. She was previously hospitalized from 09/23/16 to 09/29/16 with cellulitis to the LUE. Pt was treated with IV Vancomycin with significant improvement during that hospitalization and was discharged on po Levaquin. She presented back to the ED at [facility] [place] on 11/07/16 with redness and swelling to the left upper extremity that began yesterday evening. She states she accidentally hit the dorsum of her left hand against a door frame yesterday morning and sustained a small open wound. Then yesterday evening around 6pm she noted significant redness and swelling in the left arm which has since spread across the left chest and down the left forearm. She has not had any fevers but has had some chills. Pts WBC count was 12.7 at admission. Pt was given IV Vancomycin in the ED and this was continued at admission. CBC/BMP: 11/09/16 0540 11/12/16 0500 Significant Findings Laboratory Tests Test 11/11/16 11/11/16 11/12/16 11/13/16 06:26 17:47 05:00 05:10 Prothrombin Time 21.7 SEC 22.1 SEC 24.9 SEC (9.8-11.6) (9.8-11.6) (9.8-11.6) Chloride Level 110 MEQ/L (98-107) Creatinine 0.43 MG/DL 0.46 MG/DL (0.50-1.00) (0.50-1.00) Random Glucose 115 MG/DL (74-106) Vancomycin Level Trough 11.5 MCG/ML (5.0-10.0) Potassium Level 3.4 MEQ/L (3.5-5.1) PE at Discharge General: NAD, AAOx3 Chest: CTA Cardiac: Regular Abd: +BS, soft ND/NT Ext: LUE with erythema resolving. Mild area of erythema and palpable vein with tenderness ont he right forearm where previous IV was Hospital Course (1) Cellulitis of arm, left Status: Acute Plan: - Pt is an 86 y/o female with hx of left breast cancer s/p left mastectomy/chemo /xrt and chronic lymphedema left upper extremity. - She was previously hospitalized from 09/23/16 to 09/29/16 with cellulitis to the LUE. Pt was treated with IV Vancomycin with significant improvement during that hospitalization and was discharged on po Levaquin. - She presented back to the ED at [facility] [place] on 11/07/16 with redness and swelling to the left upper extremity that began the evening of admission after she accidentally hit the dorsum of her left hand against a door frame yesterday morning and sustained a small open wound. Then yesterday evening around 6pm she noted significant redness and swelling in the left arm which has since spread across the left chest and down the left forearm. - Pts WBC count was 12.7 at admission - WBC count improved to 8.8 on 11/09 - Pt has been on IV Vancomycin with pharmacy dosing since 11/07 and pt has been improving nicely. Vancomycin changed to po Levaquin on 11/12 but she is concerned about diarrhea. Pt had profuse diarrhea with while on Levaquin last time. She was checked at that time for C. diff which was negative. - Pt with some thrombophlebitis on the right forearm, mild - Warm compress to right forearm - Pt with some atelectasis on the CXR, encouraged IS use and ambulation OOB, - discharge to home on PO levaquin 500mg daily x 5d - f/u with PCP, Dr. Lanny Pradhan (2) Cellulitis of chest wall Status: Acute Plan: - See above. (3) Lymphedema Status: Chronic Plan: - See above. (4) HTN (hypertension) - Lasix and potassium resumed on 11/09 - upon discharge increase procardia xl to 60mg daily - keep home bp log - f/u with PCP (5) Hypothyroid Status: Chronic Plan: - Cont. home meds (6) History of recurrent deep vein thrombosis (DVT) Status: Chronic Plan: - INR is therapeutic at 1.9 today - Coumadin dose resumed on 11/10 - Repeat INR in AM (7) H/O malignant neoplasm of breast Status: Chronic Pt Condition on Discharge: Stable Discharge Disposition: Discharge Home Discharge Instructions Activities you can perform: Regular-No Restrictions Activities to Avoid: Strenuous Activity Follow up Referrals: PCP Follow-up - [address] Lanny Pradhan New Medications: Nifedipine ER 24 HR (Nifedipine ER 24 HR) 60 Mg Tab 60 MG PO DAILY htn #30 Ref 0 TAB Continued Medications: Duloxetine DR (Cymbalta DR) 20 Mg Capdr 20 MG PO DAILY #30 Ref 0 CAP Furosemide (Lasix) 20 Mg Tab 20 MG PO DAILY #30 Ref 0 TAB Hydrocodone-Acetaminophen (Secretary) 5-325 mg Tab 1 TAB PO Q6H PRN RT KNEE PAIN Ref 0 TAB Levothyroxine (Levoxyl) 50 Mcg Tab 50 MCG PO DAILY Thyroid #30 Ref 0 TAB Lisinopril (Lisinopril) 20 Mg Tab 20 MG PO BID #30 Ref 0 TAB Lorazepam (Lorazepam) 0.5 Mg Tab 0.5 MG PO Q8HR PRN ANXIETY Ref 0 TAB Metoprolol Tartrate (Metoprolol Tartrate) 50 Mg Tab 50 MG PO BID #60 Ref 0 TAB Potassium Chloride ER (K-Tab) 20 Meq Tab 20 MEQ PO DAILY Electrolyte Replacement #30 Ref 0 TAB Timolol Opth Drops (Timolol Opth Drops) 0.5 % Soln 1 DROP EACH EYE DAILY Glaucoma #1 Ref 0 BOTTLE Warfarin (Warfarin) 6 Mg Tab 6 MG PO SUMOWEFR Take 1 tablet (6mg) daily in Tuesday,Tuesday,Tuesday and Tuesday Blood Clot Prevention #30 Ref 0 TAB Warfarin (Coumadin) 7.5 Mg Tab 7.5 MG PO TUTHSA Take 1 tablet daily on Tuesday, and Tuesday Prevent Blood Clot #30 Ref 0 TAB Discontinued Medications: Nifedipine ER 24 HR (Nifedipine ER 24 HR) 30 Mg Tab 30 MG PO DAILY #30 Ref 0 TAB Kale Kaur DO Nov 13, 2016 15:05
[2016-11-13] MEDS ORDERED: NIFE60TA58 PO (15:08)
--- NOTE | 2016-11-13 15:11 | HHI.DCPOC ---
Discharge Care Plan Diagnosis: (1) Cellulitis of arm, left (2) Cellulitis of chest wall (3) H/O malignant neoplasm of breast (4) HTN (hypertension) Goals to Promote Your Health * To prevent worsening of your condition and complications * To maintain your health at the optimal level Directions to Meet Your Goals Take your medications as prescribed Follow your dietary instruction Follow activity as directed Keep your appointments as scheduled Take your immunizations and boosters as scheduled If your symptoms worsen call your PCP, if no PCP go to Urgent Care Center or Emergency Room Smoking is Dangerous to Your Health. Avoid second hand smoke Call the 24-hour hour crisis hotline for domestic abuse at Kale Kaur DO Nov 13, 2016 15:11
[2016-11-13] MEDS ORDERED: LEVA500T20 PO (15:39)
[2016-11-13] MEDS: WARFARIN SOD 7.5 MG TAB PO SCH (16:53)
== END 2016-11-13 17:00 | disposition home or self-care (01) | DRG 603 ==
LOC: NEPC 21:21 → NEDA 11-08 00:34 → INTOOBSV 11-08 00:34 → N07B 11-08 01:25 → OBSVTOIN 11-10 12:12
PROVIDERS: ADMIT Hospitalist; ATTEND Hospitalist
DX: L03.114 Cellulitis of left upper limb (principal); L03.313 Cellulitis of chest wall; E66.01 Morbid (severe) obesity due to excess calories; I89.0 Lymphedema, not elsewhere classified; I10 Essential (primary) hypertension; E03.9 Hypothyroidism, unspecified; Z86.718 Personal history of other venous thrombosis and embolism; Z85.3 Personal history of malignant neoplasm of breast; Z68.38 Body mass index [BMI] 38.0-38.9, adult; Z79.01 Long term (current) use of anticoagulants
CPT/HCPCS: 71010; 74000; 76937; 80048; 80053; 80202; 83605; 85025; 85610; 94150; 96365; 96375; 96376; G0378; J1200; J2270; J3370; J7030; J7040; J7050

== ENCOUNTER 2018-03-28 21:48 | Inpatient (IN) ==
--- NOTE | 2018-03-28 22:02 | ED ---
HPI General Chief Complaint: Respiratory Symptoms Stated Complaint: SOB Time Seen by Provider: 03/28/18 21:54 Source: patient Mode of arrival: wheelchair Limitations: no limitations History of Present Illness Seen recently for non-syncopal fall MD Complaint: Reports shortness of breath Onset (ago): day(s) Context: Denies trauma/injury Severity: moderate Consistency/Duration: constant Relieving factors: nothing Exacerbating factors: exertion Known history of: Denies COPD and PE Associated symptoms: Denies chest pain and cough Treatment prior to arrival: Reports none Related Data Home oxygen amount: none Home Medications Medication Instructions Recorded Confirmed duloxetine 20 mg PO DAILY 03/25/18 03/28/18 furosemide 20 mg PO DAILY 03/25/18 03/28/18 hydrocodone-acetaminophen [[place]] 1 tab PO Q4-6H PRN 03/25/18 03/28/18 levothyroxine 50 mcg PO DAILY 03/25/18 03/28/18 lisinopril [Prinivil] 20 mg PO BID 03/25/18 03/28/18 metoprolol tartrate 50 mg PO BID 03/25/18 03/28/18 nifedipine 60 mg PO DAILY 03/25/18 03/28/18 potassium chloride 20 meq PO DAILY 03/25/18 03/28/18 timolol 1 drp OPHTHALMIC (EYE) BID 03/25/18 03/28/18 warfarin 5.5 mg PO DAILY 03/25/18 03/28/18 warfarin 6 mg PO DAILY 03/25/18 03/28/18 Allergies Allergy/AdvReac Type Severity Reaction Status Date / Time adhesive Allergy Severe Hives Unverified 11/23/16 18:36 aspirin Allergy Severe Gastrointestinal Unverified 03/28/18 21:51 Upset diclofenac Allergy Severe Gastrointestinal Unverified 03/28/18 21:51 Upset etodolac Allergy Severe Gastrointestinal Unverified 03/28/18 21:51 Upset flurbiprofen Allergy Severe Gastrointestinal Unverified 03/28/18 21:51 Upset ibuprofen Allergy Severe Gastrointestinal Unverified 03/28/18 21:51 Upset indomethacin Allergy Severe Gastrointestinal Unverified 03/28/18 21:51 Upset ketoprofen Allergy Severe Gastrointestinal Unverified 03/28/18 21:51 Upset ketorolac Allergy Severe Gastrointestinal Unverified 03/28/18 21:51 Upset naproxen Allergy Severe Gastrointestinal Unverified 03/28/18 21:51 Upset oxaprozin Allergy Severe Gastrointestinal Unverified 03/28/18 21:51 Upset penicillin G Allergy Intermediate Hives Unverified 03/28/18 21:51 Sulfa (Sulfonamide Allergy Intermediate Rash Unverified 03/28/18 21:51 Antibiotics) Review of Systems ROS: all other systems reviewed are negative Cardiovascular Denies chest pain PMFSH Medical History Medical History History of DVT (deep vein thrombosis) (Acute) History of cellulitis (Acute) History of hypertension (Acute) Hx of breast cancer (Acute) Hx of diverticulitis of colon (Acute) Surgical History Surgical History Hx of colostomy (Acute) Hx of resection of large bowel (Acute) Social History Social History Substance History: No History of Abuse Second Hand Smoke Exposure: No Smoking Status: Never smoker How Often Do You Have a Drink Containing Alcohol: Never Recent Travel in [facility] within the Last 8 Weeks: No Recent Out of Country Travel within the Last 8 Weeks: No Exam Narrative Exam Narrative: NONTOXIC Purple ecchymosis periorbital, nontender zygoma Nontender midline CT L PERRL, EOMI NO JVD NON LABORED RESPIRATIONS, equal bilateral REGULAR RHYTHM SOFT NON TENDER, ostomy bag with stool nonbloody PELVIS STABLE FROM EXTREMITIES, moderate contusion right knee Chronic LOWER EXTREMITY EDEMA FACIAL SYMMETRY CLEAR SENTENCES AAOX3 Course Reevaluation(s) Reevaluation #1: Feels better post albuterol, environmental services technician in room with ultrasound 2340 d/w lis lujan md , requests another treatment and reassess No signs of acute airway compromise 0030 d/w radha cifuentes , sats dropped to 86% while off nasal cannula Was given albuterol treatments and nasal cannula, No signs of pneumonia sepsis or acute airway compromise Follow-up echo, pulmonary hypertension? Time: 23:03 Initial Documented Vital Signs Temperature 97.8 F 03/28/18 21:52 Pulse Rate 96 H 03/28/18 21:52 Respiratory Rate 24 03/28/18 21:52 Blood Pressure 103/55 L 03/28/18 21:52 Pulse Oximetry 70 L 03/28/18 21:52 Last Documented Vital Signs Temperature 97.8 F 03/28/18 21:52 Pulse Rate 61 03/29/18 00:25 Respiratory Rate 18 03/29/18 00:25 Blood Pressure 140/62 03/29/18 00:25 Pulse Oximetry 91 L 03/29/18 00:25 Medical Decision Making MDM Narrative Medical Screen Exam Complete: Yes Emergency Medical Condition: Yes Lab Data Result diagrams: 03/28/18 22:05 03/28/18 22:05 Lab Results 03/28/18 03/28/18 03/28/18 Range/Units 22:05 22:05 22:05 CBC w Diff Auto diff final WBC 8.4 (4.0-11.0) th/mm3 RBC 4.23 (4.00-5.30) mil/mm3 Hgb 12.2 (11.6-15.3) gm/dL Hct 36.5 (35.0-46.0) % MCV 86.3 (80.0-100.0) fL MCH 28.9 (27.0-34.0) pg MCHC 33.5 (32.0-36.0) % RDW 16.2 (11.6-17.2) % Plt Count 236 (150-450) th/mm3 MPV 8.7 (7.0-11.0) fL Neut % (Auto) 65.9 (16.0-70.0) % Lymph % (Auto) 19.2 (9.0-44.0) % [place] % (Auto) 6.1 (0.0-8.0) % Eos % (Auto) 5.0 H (0.0-4.0) % Baso % (Auto) 3.8 H (0.0-2.0) % Neut # (Auto) 5.6 (1.8-7.7) th/mm3 Lymph # (Auto) 1.6 (1.0-4.8) th/mm3 [place] # (Auto) 0.5 (0.0-0.9) th/mm3 Eos # (Auto) 0.4 (0.0-0.4) th/mm3 Baso # (Auto) 0.3 H (0.0-0.2) th/mm3 WBC Differential . Differential Comment . PT 32.0 H (9.8-11.6) sec INR 3.2 Ratio APTT 40.5 H (23.4-31.7) sec Sodium 139 (136-145) meq/L Potassium 3.8 (3.5-5.1) meq/L Chloride 108 H (98-107) meq/L Carbon Dioxide 21.9 (21.0-32.0) meq/L Anion Gap 9 (5-15) meq/L BUN 16 (7-18) mg/dL Creatinine 0.92 (0.50-1.00) mg/dL Estimated GFR 58 L (>89) mL/min Random Glucose 143 H (74-106) mg/dL Calcium 8.4 L (8.5-10.1) mg/dL Troponin I Less than 0.02 L (0.02-0.05) ng/mL Imaging Data Radiologist's impression: Chest X-Ray 03/28/18 21:57 Cardiomegaly and degenerative changes of the spine are noted. No definite evidence for acute infiltrate or effusion. Lungs are grossly clear. CONCLUSION: No acute findings. Venous Doppler Study 03/28/18 21:58 CONCLUSION: 1. The study is negative for bilateral lower extremity deep venous thrombosis. Discharge Plan Discharge Disposition Patient Disposition: ED Admit(ED Internal Use Only) Discharge Condition Condition: Stable Discharge Order Discharge Orders: ED Use Only Admit Order (Routine); Ordered 03/29/18 Ordered By: Washington Pugh Discharge Details Diagnosis: Recurrent bronchospasm, Acute respiratory insufficiency, Acute bronchospasm Physicians Team ED Provider: Washington Pugh Primary Care Provider: Lanny Cortez Attending Provider: Lis Lujan Rxs /Orders / Referrals /Forms Prescriptions: No Action warfarin 6 mg Tablet 6 mg PO DAILY RF: 0 warfarin 5 mg Tablet 5.5 mg PO DAILY RF: 0 hydrocodone-acetaminophen [[place]] 5-325 mg Tablet 1 tab PO Q4-6H PRN (Reason: Pain) RF: 0 lisinopril [Prinivil] 20 mg Tablet 20 mg PO BID RF: 0 levothyroxine 50 mcg Tablet 50 mcg PO DAILY RF: 0 timolol 0.5 % Drops 1 drp OPHTHALMIC (EYE) BID RF: 0 metoprolol tartrate 50 mg Tablet 50 mg PO BID RF: 0 furosemide 20 mg Tablet 20 mg PO DAILY RF: 0 nifedipine 60 mg Tablet Extended Release 60 mg PO DAILY RF: 0 duloxetine 20 mg Capsule,Delayed Release(Dr/Ec) 20 mg PO DAILY RF: 0 potassium chloride 20 mEq Tablet Extended Release 20 meq PO DAILY RF: 0 Discharge Interventions Interventions: Vital Signs Last Done: 03/29/18 00:25 Status ED Status: Admitted Patient
[2018-03-28 22:18] LABS: Baso # (Auto) 0.3 th/mm3 (0.0-0.2); Baso % (Auto) 3.8 % (0.0-2.0); Eos # (Auto) 0.4 th/mm3 (0.0-0.4); Hematocrit 36.5 % (35.0-46.0); Hemoglobin 12.2 gm/dL (11.6-15.3); Lymph # (Auto) 1.6 th/mm3 (1.0-4.8); Lymph % (Auto) 19.2 % (9.0-44.0); Mean Corpuscular HGB Conc 33.5 % (32.0-36.0); Mean Corpuscular Hemoglobin 28.9 pg (27.0-34.0); Mean Corpuscular Volume 86.3 fL (80.0-100.0); Mean Platelet Volume 8.7 fL (7.0-11.0); Mono # (Auto) 0.5 th/mm3 (0.0-0.9); Mono % (Auto) 6.1 % (0.0-8.0); Neut # (Auto) 5.6 th/mm3 (1.8-7.7); Neut % (Auto) 65.9 % (16.0-70.0); Platelet Count 236 th/mm3 (150-450); Red Blood Count 4.23 mil/mm3 (4.00-5.30); Red Cell Distribution Width 16.2 % (11.6-17.2); White Blood Count 8.4 th/mm3 (4.0-11.0)
--- NOTE | 2018-03-28 22:23 | XR ---
EXAM DATE: 03/28/2018 10:19 PM EST AGE/SEX: 87 years / Female INDICATIONS: Shortness of breath and chest pain. CLINICAL DATA: This is the patient's initial encounter. Patient reports that signs and symptoms have been present for 1 day and indicates a pain score of 5/10. MEDICAL/SURGICAL HISTORY: Carcinoma, breast. Hypertension. Cardiovascular disease. Pulmonary embolism. Mastectomy, left. COMPARISON: [facility] [place], CHEST SINGLE AP, 11/11/2016. . FINDINGS: Cardiomegaly and degenerative changes of the spine are noted. No definite evidence for acute infiltra te or effusion. Lungs are grossly clear. CONCLUSION: No acute findings. Electronically signed by: Gerson Echevarria MD Board Certified Radiologist 03/28/2018 10:22 PM EST
[2018-03-28 22:24] LABS: Chloride 108 meq/L (98-107); Potassium 3.8 meq/L (3.5-5.1); Sodium 139 meq/L (136-145)
[2018-03-28 22:27] LABS: Anion Gap 9 meq/L (5-15); Blood Urea Nitrogen 16 mg/dL (7-18); Calcium 8.4 mg/dL (8.5-10.1); Carbon Dioxide 21.9 meq/L (21.0-32.0); Glucose,Random 143 mg/dL (74-106)
[2018-03-28 22:31] LABS: Activated Partial Thrombo Time 40.5 sec (23.4-31.7); Glomerular Filtration Rate 58 mL/min (>89); INR 3.2 Ratio
--- NOTE | 2018-03-28 23:36 | US ---
EXAM DATE: 03/28/2018 11:30 PM EST AGE/SEX: 87 years / Female INDICATIONS: Bilateral leg pain. CLINICAL DATA: This is the patient's subsequent encounter. Patient reports that signs and symptoms h ave been present for 4 - 6 days and indicates a pain score of 4/10. MEDICAL/SURGICAL HISTORY: Deep venous thrombosis. Hypertension. Carcinoma, breast. Celluliti s. Diverticulitis. . Colostomy. Resection of large bowel. COMPARISON: [facility] [place], [place] LEG BILATERAL VENOUS DOPPLER, 07/31/2015. . TECHNIQUE: Venous ultrasound of both lower extremities was performed from the inguinal ligament to t he proximal calf. Real-time, color Doppler and spectral tracing, compression and augmentation techni ques were used. FINDINGS: Right Leg: Normal compression of the deep venous system from the inguinal region to the proximal muna f. No echogenic clot is seen. Normal response of the venous system to augmentation and respiration. Left Leg: Normal compression of the deep venous system from the inguinal region to the proximal calf . No echogenic clot is seen. Normal response of the venous system to augmentation and respiration. Other: None. CONCLUSION: 1. The study is negative for bilateral lower extremity deep venous thrombosis. Electronically signed by: Domo Gordon MD Board Certified Radiologist 03/28/2018 11:35 PM EST
[2018-03-29] MEDS ORDERED: levoFLOXacin 750 MG Tablet PO ONE (00:28)
--- NOTE | 2018-03-29 05:39 | P.HP ---
History of Present Illness Service: [facility] hospitalist service: Dr. Fadi Lujan Primary Care Physician: Lanny Cortez MD History of Present Illness: HPI: This is a 87-year-old white female who came to the emergency room with worsening shortness of breath over the last few days. When she arrived in the ER her oxygen 70s and responded to oxygen therapy. Her oxygen levels have come up in the low 90s with 2-3 L of oxygen by nasal cannula. She she denies any chest pain or heart palpitations. She denies any cough, fever, chills. 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 She has had some mild slight shortness of breath going on for a few weeks with exertion but in the last week it does seem to get worse. She denies any orthopnea or PND. She denies any history of heart attack, angina or CHF. She last had a 2D echocardiogram on that showed an EF of 65%. She has not had pulmonary function tests since 10-20-11 and her FEV1/FVC was 0.75 and FEV1 was 89% of predicted at that time. She only has a minimal smoking history having smoked less than a pack a day for 5 years and quit many years ago. She did fall this past weekend and was in the ED here at [facility] [place] she had tripped over a curb and sustained contusions to her right forehead and right cheek area as well as right knee with ecchymosis in the same areas. She had no broken bones. She denies any chest wall pain. Medical history: Hypertension Hypothyroidism History of left breast cancer with prior left modified radical mastectomy with chemotherapy and radiation therapy and then subsequently took Arimidex until she was taken off of that a few years ago. She had history of a pulmonary embolism and left leg DVT in 2016 she had some DVTs of the upper extremities. 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 No heart disease No diabetes mellitus She has glaucoma. She has had esophagitis and gastritis and a hiatal hernia noted on an EGD 2016. She had 2 hyperplastic polyps on a colonoscopy on 12/24/2011 and had diverticulosis noted then. No stroke or seizures. Surgical history: Tonsillectomy Exploratory laparotomy with sigmoid resection and left salpingo-oophorectomy with colostomy on 07-30-15 Arthroscopic left knee Bilateral cataract extraction and lens implants Appendectomy Left modified radical mastectomy EGD 07-29-16 that showed esophagitis, gastritis, hiatal hernia and dilation of esophageal spasm was performed Colonoscopy 12-03-02 (diverticulosis) Colonoscopy 12-24-11 (diverticulosis, hyperplastic polyps) Allergy: Sulfa drugs Penicillin Aspirin Adhesives Nonsteroidal anti-inflammatory drugs Medications: Duloxetine 20 mg daily for anxiety Furosemide 20 mg daily Levothyroxine 50 mcg daily Lisinopril 20 mg twice a day Nifedipine extended release 60 mg daily Metoprolol 50 mg twice a day Potassium chloride 20 mEq daily Timolol 0.5% 1 drop twice a day to each eye Warfarin 5.5 mg dose on Tuesday and and 6 mg on Tuesday, Tuesday, Tuesday, Tuesday, Tuesday Family history was noncontributory since she was raised as an orphan Social history: No alcohol use She only smoked less than 1 pack a day for 5 years prior to quitting She is retired she used to work at a [employer] in [place], [place] - Diagnosis (1) Acute respiratory insufficiency (2) Hypoxia (3) Hypothyroidism (4) Hypertension (5) History of left breast cancer (6) Colostomy care (7) History of pulmonary embolus (PE) (8) History of recurrent deep vein thrombosis (DVT) (9) Traumatic ecchymosis of face (10) Contusion of right knee Inpatient Certification: I certify that the inpatient services were ordered in accordance with Medicare regulations governing the order. This includes certification that hospital inpatient services are reasonable and necessary and in the case of services not specified as inpatient-only under 42 CFR 419.22(n), that they are appropriately provided as inpatient services in accordance to with the 2-midnight benchmark under 43 CFR 412.3(e) Review of Systems Review of systems: General: No fever, chills, sweats. HEENT: No sore throat, runny nose, earache. Cardiovascular: No chest pain, heart palpitations, orthopnea. Pulmonary: No cough, hemoptysis, pleuritic chest pain. She has shortness of breath as mentioned in the HPI Gastrointestinal: No nausea, vomiting, abdominal pain, heartburn, indigestion, diarrhea, constipation, melena, rectal bleeding. She has a colostomy of the left abdomen. : No dysuria, hematuria, urgency, frequency, incontinence. Musculoskeletal: Soreness of the right knee region from recent fall. Psychiatry: No significant anxiety or depression Extremities: No edema Dermatology: No rash or itching. She has bruising on her right forehead and face below the right eye Neuro: No headache, confusion, motor weakness, numbness or tingling PMFSH - History History Provided By: Patient, Medical Record - Medical History Medical History: Medical History (Last Reviewed 03/28/18 @ 23:14 by Selma Lamar RN) History of DVT (deep vein thrombosis) History of cellulitis History of hypertension Hx of breast cancer Hx of diverticulitis of colon - Surgical History Surgical History: Surgical History (Last Updated 03/28/18 @ 23:14 by Selma Lamar RN) Hx of colostomy Hx of resection of large bowel - Tobacco History Second Hand Smoke Exposure: No Tobacco Use In Past 30 Days: No Smoking Status: Never smoker - Alcohol History How Often Do You Have a Drink Containing Alcohol: Never - Substance Use History Substance History: No History of Abuse - Travel History Recent Travel in the [place] Within the Last 8 Weeks: No Recent Travel Out of the Country Within the Last 8 Weeks: No - Immunization History Tetanus Immunization: <5 Years Hx Influenza Vaccine This Season: Yes Medications and Allergies Active Medications: Active Medications Albuterol (Duoneb Neb (Coco)) 1 ampul NEB Q6HR WHILE AWAKE NEB [facility] Duloxetine HCl (Cymbalta) 20 mg PO DAILY [facility] Furosemide (Lasix) 20 mg PO DAILY [facility] Levothyroxine Sodium (Synthroid) 50 mcg PO DAILY [facility] Lisinopril (Prinivil) 20 mg PO BID [facility] Metoprolol Tartrate (Lopressor) 50 mg PO BID [facility] Non-Formulary Medication (Nifedipine [Nifedipine]) 60 mg PO DAILY [facility] Non-Formulary Medication (Potassium Chloride [Potassium Chloride]) 20 meq PO DAILY [facility] Non-Formulary Medication (Timolol [Timolol]) 1 drp EACH EYE BID [facility] Prednisone (Deltasone) 20 mg PO DAILY [facility] Warfarin Sodium (Coumadin) 5.5 mg PO DAILY [facility] Warfarin Sodium (Coumadin) 6 mg PO DAILY [facility] Allergies Allergy/AdvReac Type Severity Reaction Status Date / Time adhesive Allergy Severe Hives Unverified 11/23/16 18:36 aspirin Allergy Severe Gastrointestinal Unverified 03/28/18 21:51 Upset diclofenac Allergy Severe Gastrointestinal Unverified 03/28/18 21:51 Upset etodolac Allergy Severe Gastrointestinal Unverified 03/28/18 21:51 Upset flurbiprofen Allergy Severe Gastrointestinal Unverified 03/28/18 21:51 Upset ibuprofen Allergy Severe Gastrointestinal Unverified 03/28/18 21:51 Upset indomethacin Allergy Severe Gastrointestinal Unverified 03/28/18 21:51 Upset ketoprofen Allergy Severe Gastrointestinal Unverified 03/28/18 21:51 Upset ketorolac Allergy Severe Gastrointestinal Unverified 03/28/18 21:51 Upset naproxen Allergy Severe Gastrointestinal Unverified 03/28/18 21:51 Upset oxaprozin Allergy Severe Gastrointestinal Unverified 03/28/18 21:51 Upset penicillin G Allergy Intermediate Hives Unverified 03/28/18 21:51 Sulfa (Sulfonamide Allergy Intermediate Rash Unverified 03/28/18 21:51 Antibiotics) Home Medications Medication Instructions Recorded Confirmed Type duloxetine 20 mg PO DAILY 03/25/18 03/28/18 History furosemide 20 mg PO DAILY 03/25/18 03/28/18 History hydrocodone-acetaminophen [[place]] 1 tab PO Q4-6H PRN 03/25/18 03/28/18 History levothyroxine 50 mcg PO DAILY 03/25/18 03/28/18 History lisinopril [Prinivil] 20 mg PO BID 03/25/18 03/28/18 History metoprolol tartrate 50 mg PO BID 03/25/18 03/28/18 History nifedipine 60 mg PO DAILY 03/25/18 03/28/18 History potassium chloride 20 meq PO DAILY 03/25/18 03/28/18 History timolol 1 drp OPHTHALMIC (EYE) BID 03/25/18 03/28/18 History warfarin 5.5 mg PO DAILY 03/25/18 03/28/18 History warfarin 6 mg PO DAILY 03/25/18 03/28/18 History Exam Vital signs: Vital Signs 03/28/18 21:52 03/28/18 22:04 03/28/18 22:05 Temperature 97.8 F Pulse Rate 96 H 82 86 Respiratory Rate 24 22 Blood Pressure 103/55 L Pulse Oximetry 70 L 94 L 03/28/18 23:31 03/28/18 23:55 03/29/18 00:25 Temperature Pulse Rate 78 50 L 61 Respiratory Rate 18 18 18 Blood Pressure 133/75 140/62 Pulse Oximetry 94 L 91 L 03/29/18 01:10 03/29/18 02:22 03/29/18 02:37 Temperature 97.5 F L Pulse Rate 67 76 Respiratory Rate 16 23 Blood Pressure 138/70 131/61 Pulse Oximetry 90 L 91 L 91 L Intake & Output 03/28/18 03/28/18 03/29/18 06:59 18:59 06:59 Weight 100.2 kg Other: Weight On Admission 100.2 kg Narrative: PE: This is a pleasant white female in no distress. HEENT: Pupils equal, EOMs intact, sclera nonicteric, mouth without lesions, TMs intact, nose without lesions. She has ecchymosis of the right forehead and right face below the right eye. Some slight ecchymosis below the left eye also Neck: No JVD, neck is supple, no carotid bruit Heart: Regular rate and rhythm without murmurs or gallops Lungs: Clear to auscultation Abdomen: Soft, nontender, no masses, no organomegaly. Colostomy present left side of the abdomen. She has a ventral hernia of the right mid abdomen near the umbilical region Extremities: No edema, pulses palpated, no calf tenderness. She has some bruising and slight swelling of the anterior right knee region secondary to recent fall. Skin: ecchymosis as mentioned above Neuro: Alert, oriented, normal motor exam, sensation intact, cranial nerves intact Results - Labs CBC & Chem 7: 03/28/18 22:05 03/28/18 22:05 Labs: Laboratory Results - last 24 hr 03/28/18 03/28/18 03/28/18 22:05 22:05 22:05 CBC w Diff Auto diff final WBC 8.4 RBC 4.23 Hgb 12.2 Hct 36.5 MCV 86.3 MCH 28.9 MCHC 33.5 RDW 16.2 Plt Count 236 MPV 8.7 Neut % (Auto) 65.9 Lymph % (Auto) 19.2 [place] % (Auto) 6.1 Eos % (Auto) 5.0 H Baso % (Auto) 3.8 H Neut # (Auto) 5.6 Lymph # (Auto) 1.6 [place] # (Auto) 0.5 Eos # (Auto) 0.4 Baso # (Auto) 0.3 H WBC Differential . Differential Comment . PT 32.0 H INR 3.2 APTT 40.5 H Sodium 139 Potassium 3.8 Chloride 108 H Carbon Dioxide 21.9 Anion Gap 9 BUN 16 Creatinine 0.92 Estimated GFR 58 L Random Glucose 143 H Calcium 8.4 L Troponin I Less than 0.02 L - Imaging Impressions Chest X-Ray 03/28/18 21:57 Cardiomegaly and degenerative changes of the spine are noted. No definite evidence for acute infiltrate or effusion. Lungs are grossly clear. CONCLUSION: No acute findings. Venous Doppler Study 03/28/18 21:58 CONCLUSION: 1. The study is negative for bilateral lower extremity deep venous thrombosis. Caprini VTE Risk Assessment Caprini VTE Risk Assessment: Moderate/High Risk (score >= 2) Caprini Risk Assessment Model: Point Value = 1 Point Value = 2 Point Value = 3 Point Value = 5 Age 41-60 Minor surgery BMI > 25 kg/m2 Swollen legs Varicose veins or History of unexplained or recurrent spontaneous Oral contraceptives or hormone replacement Sepsis (< 1 month) Serious lung disease, including pneumonia (< 1 month) Abnormal pulmonary function Acute myocardial infarction Congestive heart failure (< 1 month) History of inflammatory bowel disease Medical patient at bed rest Age 61-74 Arthroscopic surgery Major open surgery (> 45 min) Laparoscopic surgery (> 45 min) Malignancy Confined to bed (> 72 hours) Immobilizing plaster cast Central venous access Age >= 75 History of VTE Family history of VTE Factor V Leiden Prothrombin [id number] Lupus anticoagulant Anticardiolipin antibodies Elevated serum homocysteine Heparin-induced thrombocytopenia Other congenital or acquired thrombophilia Stroke (< 1 month) Elective arthroplasty Hip, pelvis, or leg fracture Acute spinal cord injury (< 1 month) Prophylaxis Regimen: Total Risk Factor Score Risk Level Prophylaxis Regimen 0-1 Low Early ambulation 2 Moderate Order ONE of the following: *Sequential Compression Device (SCD) *Heparin 5000 units SQ BID 3-4 Higher Order ONE of the following medications: *Heparin 5000 units SQ TID *Enoxaparin/Lovenox 40 mg SQ daily (WT < 150 kg, CrCl > 30 mL/min) *Enoxaparin/Lovenox 30 mg SQ daily (WT < 150 kg, CrCl > 10-29 mL/min) *Enoxaparin/Lovenox 30 mg SQ BID (WT < 150 kg, CrCl > 30 mL/min) AND/OR *Sequential Compression Device (SCD) 5 or more Highest Order ONE of the following medications: *Heparin 5000 units SQ TID (Preferred with Epidurals) *Enoxaparin/Lovenox 40 mg SQ daily (WT < 150 kg, CrCl > 30 mL/min) *Enoxaparin/Lovenox 30 mg SQ daily (WT < 150 kg, CrCl > 10-29 mL/min) *Enoxaparin/Lovenox 30 mg SQ BID (WT < 150 kg, CrCl > 30 mL/min) AND *Sequential Compression Device (SCD) Patient will be continued on her Warfarin. Assessment and Plan - Assessment (1) Acute respiratory insufficiency Code(s): R06.89 - Other abnormalities of breathing Status: Acute (2) Hypoxia Code(s): R09.02 - Hypoxemia Status: Acute (3) Hypothyroidism Code(s): E03.9 - Hypothyroidism, unspecified Status: Chronic (4) Hypertension Code(s): I10 - Essential (primary) hypertension Status: Chronic (5) History of left breast cancer Code(s): Z85.3 - Personal history of malignant neoplasm of breast Status: Resolved (6) Colostomy care Code(s): Z43.3 - Encounter for attention to colostomy Status: Chronic (7) History of pulmonary embolus (PE) Code(s): Z86.711 - Personal history of pulmonary embolism Status: Resolved (8) History of recurrent deep vein thrombosis (DVT) Code(s): Z86.718 - Personal history of other venous thrombosis and embolism Status: Resolved (9) Traumatic ecchymosis of face Code(s): S00.83XA - Contusion of other part of head, initial encounter Status : Acute (10) Contusion of right knee Code(s): S80.01XA - Contusion of right knee, initial encounter Status: Acute - Plan Plan: She will be maintained on her regular medications. She is on warfarin. Her INR was just a little high at 3.2 last night so I will recheck at this morning. I ordered pulmonary function test to evaluate her lung function because of her hypoxia. I will order a 2D echocardiogram to evaluate her pulmonary artery pressure. She will be maintained on oxygen and may very well require oxygen at home. I will consult the ergonomic specialist (Dr. Campbell). She does not require DVT prophylaxis other than continuing her warfarin.
[2018-03-29] MEDS: Levothyroxine 50 MCG Tablet PO SCH (06:40)
[2018-03-29 08:49] LABS: INR 3.2 Ratio; Prothrombin Time 32.2 sec (9.8-11.6)
[2018-03-29] MEDS ORDERED: predniSONE 20 MG Tablet PO SCH (09:00)
[2018-03-29] MEDS ORDERED: Furosemide 20 MG Tablet PO SCH (09:00)
[2018-03-29] MEDS: Lisinopril 20 MG Tablet PO SCH ×2 (10:16→20:28)
[2018-03-29] MEDS: Metoprolol Tartrate 50 MG Tablet PO SCH ×2 (10:17→20:27)
[2018-03-29] MEDS: Timolol 0.5% Drops 5 ML Bottle EACH EYE SCH ×2 (10:28→20:34)
--- NOTE | 2018-03-29 15:30 | ECG ---
Date Performed: 03/28/2018 Time Performed: 22:12:30 PTAGE: 87 years EKG: Sinus rhythm RIGHT BUNDLE BRANCH BLOCK Since the previous tracing, no significant change noted ABNORMAL ECG PREVIOUS TRACING : 07/29/2016 08.24 DOCTOR: Meme Lizarraga Interpretating Date/Time 03/29/2018 15:28:06
[2018-03-29] MEDS: Furosemide 20 MG Tablet PO SCH (17:37)
--- NOTE | 2018-03-29 18:17 | ECHRPT ---
Indication: Shortness of Breath CONCLUSIONS Technically difficult study. In limited views, the left ventricular systolic function is normal with an estimated ejection fracti on in the range of 55-60%. There was limited left ventricular wall motion assessment due to poor endocardial visualization. There is mild tricuspid valve regurgitation. Left pleural effusion noted. There is estimated qxiinbep-br-[id number] pulmonary hypertension present (range 60-70 mmHg). BP: / HR: Rhythm: MEASUREMENTS (Male / Female) Normal Values Technical Quality:Technically difficult study 2D ECHO LV Diastolic Diameter PLAX 4.7 cm 4.2 - 5.9 / 3.9 - 5.3 cm LV Systolic Diameter PLAX 3.1 cm IVS Diastolic Thickness 1.0 cm 0.6 - 1.0 / 0.6 - 0.9 cm LVPW Diastolic Thickness 0.9 cm 0.6 - 1.0 / 0.6 - 0.9 cm LV Relative Wall Thickness 0.4 RV Internal Dim ED PLAX 2.8 cm LVOT Diameter 1.9 cm Aortic Root Diameter 3.1 cm LA Systolic Diameter LX 3.5 cm 3.0 - 4.0 / 2.7 - 3.8 cm DOPPLER AV Peak Velocity 171.0 cm/s AV Peak Gradient 11.7 mmHg LVOT Peak Velocity 135.0 cm/s LVOT Peak Gradient 7.3 mmHg AV Area Cont Eq pk 2.2 cm Mitral E Point Velocity 87.4 cm/s Mitral A Point Velocity 78.5 cm/s Mitral E to A Ratio 1.1 LV E' Lateral Velocity 8.2 cm/s Mitral E to LV E' Lateral Ratio 10.7 LV E' Septal Velocity 7.1 cm/s Mitral E to LV E' Septal Ratio 12.3 TR Peak Velocity 413.0 cm/s TR Peak Gradient 68.2 mmHg Right Atrial Pressure 15.0 mmHg Pulmonary Artery Systolic Pressu 83.2 mmHg Right Ventricular Systolic Press 83.2 mmHg PV Peak Velocity 140.0 cm/s PV Peak Gradient 7.8 mmHg FINDINGS LEFT VENTRICLE Normal left ventricular size. Wall thickness is measured at the upper limits of normal. In limited views, the left ventricular systolic function is normal with an estimated ejection fracti on in the range of 55-60%. There was limited left ventricular wall motion assessment due to poor endocardial visualization. RIGHT VENTRICLE Grossly normal LEFT ATRIUM The left atrial size is normal. RIGHT ATRIUM The right atrial size is normal. ATRIAL SEPTUM Normal atrial septal thickness AORTA The aortic root and proximal ascending aorta are normal in size on limited imaging. MITRAL VALVE Grossly normal No mitral valve regurgitation. No mitral valve stenosis. AORTIC VALVE The aortic valve is not well visualized. Aortic valve sclerosis is present. No aortic valve regurgitation. No aortic valve stenosis. TRICUSPID VALVE Grossly normal There is mild tricuspid valve regurgitation. No tricuspid valve stenosis. There is estimated [id number] pulmonary hypertension present (range 60-70 mmHg). PULMONARY VALVE The pulmonary valve is not well visualized. VESSELS The inferior vena cava was not well visualized. PERICARDIUM Left pleural effusion noted Sam Melo DO (Electronically Signed) Final Date:29 March 2018 18:15 Amended: 29 March 2018 18:19
--- NOTE | 2018-03-29 19:44 | MB ---
cc: Bobby Rosales MD DATE: 03/29/2018 REASON FOR CONSULTATION: Respiratory failure, question COPD. HISTORY OF PRESENT ILLNESS: Mrs. Baires is an 87-year-old female who was admitted with worsening shortness of breath and acute hypoxic respiratory failure, placed on oxygen therapy and bronchodilator therapy, and she believes the nebulized albuterol is very helpful. The patient tells me she has been with significant exertional dyspnea at home for a long time; however, not that bad. She denies cough, expectoration, fever, chill, or hemoptysis. PAST MEDICAL HISTORY: Pulmonary embolism and DVT, hypertension, hypothyroidism, breast cancer, glaucoma, acid reflux and hiatal hernia. She was told she had polyps when she had a colonoscopy. PAST SURGICAL HISTORY: Radical mastectomy on the left. Bilateral cataract surgery. Sigmoid resection and colostomy. T and A as a child. MEDICATIONS: 1. Coumadin. 2. Timolol. 3. Potassium. 4. Metoprolol. 5. Nifedipine. 6. Lisinopril. 7. Levothyroxine. 8. Lasix. 9. Duloxetine. CURRENT MEDICATIONS: Include: 1. Duloxetine. 1. Lasix. 2. Lisinopril. 3. Metoprolol. 4. Nifedipine. 5. Potassium. 6. Deltasone 20 mg daily. 7. Timolol. 8. Coumadin. ALLERGIES: 1. ADHESIVE TAPE. 2. ASPIRIN 3. DICLOFENAC. 4. ETODOLAC. 5. FLURBIPROFEN. FAMILY HISTORY: Noncontributory. SOCIAL HISTORY: Remote smoking history for a few years, has not smoked in 35 years. REVIEW OF SYSTEMS: A 12-point review of systems as per HPI and past history, otherwise negative. PHYSICAL EXAMINATION: VITAL SIGNS: Temperature 97, pulse 74, respirations 18, blood pressure 130/80, oxygen saturation 98% on 3 liters oxygen nasal cannula. HEENT: Unremarkable. Eyes without icterus. NECK: Without adenopathy, thyroid enlargement. Central trachea. CHEST: Few rhonchi at bases. CARDIAC: PMI distant. S1, S2 audible. No murmur. No rub. ABDOMEN: Lax, bowel sounds audible. EXTREMITIES: No clubbing, cyanosis, edema. LABORATORY DATA: Pulmonary function done today with severe airway obstruction. White count 8.4, hemoglobin 12.2, hematocrit 36.3, platelets 236,000. INR 3.2. Sodium 139, potassium 3.8, BUN 16, creatinine 0.9. IMPRESSION: 1. Acute respiratory failure. 2. 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 3. Deep venous thrombosis, pulmonary embolism. 4. Breast cancer. PLAN: The patient is on oxygen therapy, which will be maintained. Nebulized albuterol and ipratropium to be continued. We will continue steroid therapy. Would increase the dose to twice daily. Her chest x-ray is without acute infiltrate. We will follow her course along with you and, depending on progress, proceed further. An echocardiogram was ordered. We will review results as well. I do thank you for asking me to partake in Mrs. Baires's care. Bobby Rosales MD WWW/sergo/digna , 06:22 PM , 06:33 PM
[2018-03-29] MEDS: predniSONE 20 MG Tablet PO SCH (20:28)
[2018-03-29] MEDS ORDERED: Famotidine 20 MG Tablet PO SCH (21:00)
[2018-03-30] MEDS: Levothyroxine 50 MCG Tablet PO SCH (05:28)
[2018-03-30 06:23] LABS: Baso % (Auto) 0.5 % (0.0-2.0); Eos % (Auto) 0.2 % (0.0-4.0); Hematocrit 35.6 % (35.0-46.0); Hemoglobin 11.6 gm/dL (11.6-15.3); Lymph # (Auto) 1.1 th/mm3 (1.0-4.8); Lymph % (Auto) 14.6 % (9.0-44.0); Mean Corpuscular HGB Conc 32.6 % (32.0-36.0); Mean Corpuscular Hemoglobin 28.2 pg (27.0-34.0); Mean Corpuscular Volume 86.5 fL (80.0-100.0); Mean Platelet Volume 8.8 fL (7.0-11.0); Mono # (Auto) 0.5 th/mm3 (0.0-0.9); Mono % (Auto) 6.7 % (0.0-8.0); Neut # (Auto) 5.6 th/mm3 (1.8-7.7); Platelet Count 252 th/mm3 (150-450); Red Blood Count 4.11 mil/mm3 (4.00-5.30); Red Cell Distribution Width 16.4 % (11.6-17.2); White Blood Count 7.2 th/mm3 (4.0-11.0)
[2018-03-30 06:35] LABS: Calcium 8.5 mg/dL (8.5-10.1); Carbon Dioxide 24.8 meq/L (21.0-32.0)
[2018-03-30] MEDS: Furosemide 20 MG Tablet PO SCH (08:47)
[2018-03-30] MEDS: Metoprolol Tartrate 50 MG Tablet PO SCH (08:47)
[2018-03-30] MEDS: Lisinopril 20 MG Tablet PO SCH (08:47)
[2018-03-30] MEDS: predniSONE 20 MG Tablet PO SCH (08:48)
[2018-03-30] MEDS: Timolol 0.5% Drops 5 ML Bottle EACH EYE SCH (08:49)
--- NOTE | 2018-03-30 09:47 | P.PN ---
Subjective Interval history: ALERT NO SOB AT REST MEZA Physical Exam Vital signs: Vital Signs 03/29/18 12:00 03/29/18 14:17 03/29/18 16:00 Temperature 97.4 F L 96.7 F L Pulse Rate 86 71 78 Respiratory Rate 20 16 20 Blood Pressure 127/75 132/61 Pulse Oximetry 94 L 98 Pulse Oximetry [Resting on Room Air] Pulse Oximetry [Resting with Oxygen] 03/29/18 20:00 03/29/18 21:00 03/30/18 00:00 Temperature 97.3 F L 96.3 F L Pulse Rate 89 90 91 H Respiratory Rate 18 20 18 Blood Pressure 122/66 160/70 H Pulse Oximetry 92 L 92 L 92 L Pulse Oximetry [Resting on Room Air] Pulse Oximetry [Resting with Oxygen] 03/30/18 07:26 03/30/18 08:00 03/30/18 09:10 Temperature 96.8 F L Pulse Rate 76 80 Respiratory Rate 18 19 Blood Pressure 142/62 H Pulse Oximetry 98 92 L Pulse Oximetry [Resting on Room Air] 81 L Pulse Oximetry [Resting with Oxygen] 93 L Intake & Output 03/29/18 03/30/18 03/30/18 18:59 06:59 18:59 Weight 101.5 kg Other: # Voids 3 Narrative: PE: This is a pleasant white female in no distress. HEENT: Pupils equal, EOMs intact, sclera nonicteric, mouth without lesions, TMs intact, nose without lesions. She has ecchymosis of the right forehead and right face below the right eye. Some slight ecchymosis below the left eye also Neck: No JVD, neck is supple, no carotid bruit Heart: Regular rate and rhythm without murmurs or gallops Lungs: Clear to auscultation Abdomen: Soft, nontender, no masses, no organomegaly. Colostomy present left side of the abdomen. She has a ventral hernia of the right mid abdomen near the umbilical region Extremities: No edema, pulses palpated, no calf tenderness. She has some bruising and slight swelling of the anterior right knee region secondary to recent fall. Skin: ecchymosis as mentioned above Neuro: Alert, oriented, normal motor exam, sensation intact, cranial nerves intact Results - Labs CBC & Chem 7: 03/30/18 06:10 03/30/18 06:10 Laboratory Results - last 24 hr 03/30/18 03/30/18 03/30/18 06:10 06:10 06:10 CBC w Diff Auto diff final WBC 7.2 RBC 4.11 Hgb 11.6 Hct 35.6 MCV 86.5 MCH 28.2 MCHC 32.6 RDW 16.4 Plt Count 252 MPV 8.8 Neut % (Auto) 78.0 H Lymph % (Auto) 14.6 [place] % (Auto) 6.7 Eos % (Auto) 0.2 Baso % (Auto) 0.5 Neut # (Auto) 5.6 Lymph # (Auto) 1.1 [place] # (Auto) 0.5 Eos # (Auto) 0.0 Baso # (Auto) 0.0 WBC Differential . Differential Comment . Sodium 141 Potassium 4.0 Chloride 109 H Carbon Dioxide 24.8 Anion Gap 7 BUN 18 Creatinine 0.73 Estimated GFR 76 L Random Glucose 134 H Calcium 8.5 B-Natriuretic Peptide 685 H Assessment and Plan - Plan COPD EXACERBATION RESPIRATORY FAILURE PLAN OK TO D/C HOME TODAY 6 MIN WALK, WILL PROBABLY NEED HOME O2 PREDNISONE PO AND TAPER PO CEFTIN INHALED LABA/ICS OR LABA /LAMA AT HOME OFFICE I WEEK
[2018-03-30 12:35] VITALS: BP 128/61; RESP 20; TEMP 97; O2SAT 94
--- NOTE | 2018-03-30 12:53 | P.PN ---
Subjective Interval history: She states she would like to go home today. Her breathing is better today. She was sitting up and eating breakfast without any problem. She still requires oxygen however. She has been cleared by the emergency management program specialist to go home. Physical Exam Vital signs: Vital Signs 03/29/18 14:17 03/29/18 16:00 03/29/18 20:00 Temperature 96.7 F L 97.3 F L Pulse Rate 71 78 89 Respiratory Rate 16 20 18 Blood Pressure 132/61 122/66 Pulse Oximetry 98 92 L Pulse Oximetry [Resting on Room Air] Pulse Oximetry [Resting with Oxygen] 03/29/18 21:00 03/30/18 00:00 03/30/18 07:26 Temperature 96.3 F L Pulse Rate 90 91 H 76 Respiratory Rate 20 18 18 Blood Pressure 160/70 H Pulse Oximetry 92 L 92 L 98 Pulse Oximetry [Resting on Room Air] Pulse Oximetry [Resting with Oxygen] 03/30/18 08:00 03/30/18 09:10 03/30/18 12:00 Temperature 96.8 F L 97.0 F L Pulse Rate 80 64 Respiratory Rate 19 20 Blood Pressure 142/62 H 128/61 Pulse Oximetry 92 L 94 L Pulse Oximetry [Resting on Room Air] 81 L Pulse Oximetry [Resting with Oxygen] 93 L Intake & Output 03/29/18 03/30/18 03/30/18 18:59 06:59 18:59 Weight 101.5 kg Other: # Voids 3 Date of Last Bowel Movement 03/30/18 Narrative: PE: This is a pleasant white female in no distress. HEENT: Pupils equal, EOMs intact, sclera nonicteric, mouth without lesions, TMs intact, nose without lesions. She has ecchymosis of the right forehead and right face below the right eye. Some slight ecchymosis below the left eye also Neck: No JVD, neck is supple, no carotid bruit Heart: Regular rate and rhythm without murmurs or gallops Lungs: Clear to auscultation Abdomen: Soft, nontender, no masses, no organomegaly. Colostomy present left side of the abdomen. She has a ventral hernia of the right mid abdomen near the umbilical region Extremities: No edema, pulses palpated, no calf tenderness. She has some bruising and slight swelling of the anterior right knee region secondary to recent fall. Skin: ecchymosis as mentioned above Neuro: Alert, oriented, normal motor exam, sensation intact, cranial nerves intact Results - Labs CBC & Chem 7: 03/30/18 06:10 03/30/18 06:10 Laboratory Results - last 24 hr 03/30/18 03/30/18 03/30/18 06:10 06:10 06:10 CBC w Diff Auto diff final WBC 7.2 RBC 4.11 Hgb 11.6 Hct 35.6 MCV 86.5 MCH 28.2 MCHC 32.6 RDW 16.4 Plt Count 252 MPV 8.8 Neut % (Auto) 78.0 H Lymph % (Auto) 14.6 Titus % (Auto) 6.7 Eos % (Auto) 0.2 Baso % (Auto) 0.5 Neut # (Auto) 5.6 Lymph # (Auto) 1.1 Titus # (Auto) 0.5 Eos # (Auto) 0.0 Baso # (Auto) 0.0 WBC Differential . Differential Comment . Sodium 141 Potassium 4.0 Chloride 109 H Carbon Dioxide 24.8 Anion Gap 7 BUN 18 Creatinine 0.73 Estimated GFR 76 L Random Glucose 134 H Calcium 8.5 B-Natriuretic Peptide 685 H Microbiology 03/29/18 00:40 Blood - Peripheral Aerobic Blood Culture - Preliminary No growth in 1 day 03/29/18 00:40 Blood - Peripheral Anaerobic Blood Culture - Preliminary No growth in 1 day 03/29/18 00:20 Blood - Peripheral Aerobic Blood Culture - Preliminary No growth in 1 day 03/29/18 00:20 Blood - Peripheral Anaerobic Blood Culture - Preliminary No growth in 1 day - Imaging Chest X-Ray 03/28/18 21:57 Cardiomegaly and degenerative changes of the spine are noted. No definite evidence for acute infiltrate or effusion. Lungs are grossly clear. CONCLUSION: No acute findings. Venous Doppler Study 03/28/18 21:58 CONCLUSION: 1. The study is negative for bilateral lower extremity deep venous thrombosis. 2D echo on 03-29-18 showed and EF of 55-60%, mild tricuspid regurgitation, and moderate to severe pulmonary hypertension with a pulmonary artery pressure of 60-70mmHg Assessment and Plan - Assessment (1) Severe chronic obstructive pulmonary disease Code(s): J44.9 - Chronic obstructive pulmonary disease, unspecified Status: Chronic (2) Pulmonary hypertension Code(s): I27.20 - Pulmonary hypertension, unspecified Status: Chronic (3) Chronic respiratory failure Code(s): J96.10 - Chronic respiratory failure, unspecified whether with hypoxia or hypercapnia Status: Chronic (4) Acute respiratory insufficiency Code(s): R06.89 - Other abnormalities of breathing Status: Acute (5) Hypoxia Code(s): R09.02 - Hypoxemia Status: Acute (6) Hypothyroidism Code(s): E03.9 - Hypothyroidism, unspecified Status: Chronic (7) Hypertension Code(s): I10 - Essential (primary) hypertension Status: Chronic (8) History of left breast cancer Code(s): Z85.3 - Personal history of malignant neoplasm of breast Status: Resolved (9) Colostomy care Code(s): Z43.3 - Encounter for attention to colostomy Status: Chronic (10) History of pulmonary embolus (PE) Code(s): Z86.711 - Personal history of pulmonary embolism Status: Resolved (11) History of recurrent deep vein thrombosis (DVT) Code(s): Z86.718 - Personal history of other venous thrombosis and embolism Status: Resolved (12) Traumatic ecchymosis of face Code(s): S00.83XA - Contusion of other part of head, initial encounter Status : Acute (13) Contusion of right knee Code(s): S80.01XA - Contusion of right knee, initial encounter Status: Acute - Plan Plan: Patient's breathing is stable on oxygen and she will require oxygen at home and this is being arranged for her to have home when she goes home later today. She has been seen by Dr. Rosales (pulmonary) and she has been cleared for discharge by him. She will be sent home on a tapering dose of prednisone, a long -acting bronchodilator/steroid inhaler, and cefuroxime 500mg twice a day for 10 days. Her INR was 3.2 today so I will instruct her to not take her evening dose tonight. I changed her warfarin to 6 mg on Tuesday and and 5 mg on Tuesday, Tuesday, Tuesday, Tuesday. She will also have duo nebulizer treatments available to use up to 4 times a day if needed. She will be on 2 L of oxygen. I did increase her furosemide to 20 mg twice a day while she was in the hospital. I will ordered a repeat BMP and PT/INR in 1 week. She will follow-up with her PCP in [address] Rosales in 1 week
[2018-03-30 13:37] VITALS: PULSE 66
== END 2018-03-30 15:24 | disposition home or self-care (01) ==
LOC: PHED 21:48 → PHEDA 03-29 00:29 → PH3 03-29 02:06
PROVIDERS: ADMIT Family Medicine; ATTEND Family Medicine